=== PATIENT | male | born 1955 | race Caucasian/White ===

== ENCOUNTER 2017-04-17 06:09 | Inpatient (IN) | payer MEDICARE, MEDICAID ==
[2017-04-17] VITALS (17 sets, daily range): BP systolic 104–149; BP diastolic 57–92
[~2017-04-17] VITALS: Ht 193 cm; Wt 137.0 kg
[~2017-04-17 06:09] MED LIST: FERR-86 PO; FURO-150 PO; LACT10SO PO; MILK200C4 PO; POTASSIUM GLUCONATE PO; VITAMIN C PO; VITAMIN D PO
[2017-04-17] MEDS ORDERED: ondansetron/PF 4mg/2ml inj IV ONE ×2 (06:25→08:05)
[2017-04-17] MEDS ORDERED: aspirin 81mg tab.chew PO ONE (06:25)
[2017-04-17] MEDS ORDERED: furosemide 10 MG/1 ML 10ml inj IV ONE (06:25)
[2017-04-17] MEDS ORDERED: fentaNYL/PF 50MCG/1 ML 2ML syringe IV ONE ×3 (06:30→10:40)
[2017-04-17 07:24] LABS: BASOPHILS % (AUTO) 0.6 % (0-1); EOSINOPHILS # (AUTO) 0.1 X10'3 (0-0.9); EOSINOPHILS % (AUTO) 3.2 % (0-6); HEMATOCRIT 42.5 % (42.0-52.0); HEMOGLOBIN 14.5 g/dl (14.0-17.9); LYMPHOCYTES # (AUTO) 0.9 X10'3 (1.1-4.8); LYMPHOCYTES % (AUTO) 21.2 % (21-51); MEAN CORPUSCULAR HGB CONC 34.2 % (33.0-36.5); MEAN CORPUSCULAR VOLUME 93.6 FL (78-98); MEAN PLATELET VOLUME 7.9 FL (7.4-10.4); MONOCYTES # (AUTO) 0.2 X10'3 (0-0.9); MONOCYTES % (AUTO) 4.3 % (2-12); NEUTROPHILS # (AUTO) 3.1 X10'3 (1.8-7.7); NEUTROPHILS % (AUTO) 70.7 % (42-75); PLATELET COUNT 104 X10'3 (140-440); RED BLOOD COUNT 4.54 X10'6 (4.70-6.10); RED CELL DISTRIBUTION WIDTH 16.5 % (11.5-14.5); WHITE BLOOD COUNT 4.4 X10'3 (4.5-11.0)
[2017-04-17 07:32] LABS: INR 1.2 INR; PROTHROMBIN TIME 12.4 SECONDS (9.0-12.0)
[2017-04-17] MEDS ORDERED: METO5TAB7 PO (07:32)
[2017-04-17] MEDS ORDERED: LIDO35.4 (07:32)
[2017-04-17] MEDS ORDERED: SPIR25TA3 PO (07:32)
[2017-04-17] MEDS ORDERED: POTA20TA10 PO (07:32)
[2017-04-17 07:38] LABS: ALANINE AMINOTRANSFERASE 34 U/L (12-78); ALBUMIN 3.7 G/DL (3.4-5.0); ALBUMIN/GLOBULIN RATIO 0.9 (1.1-1.5); ALKALINE PHOSPHATASE 89 IU/L (46-116); ANION GAP 9 (8-16); ASPARTATE AMINO TRANSFERASE 44 U/L (10-37); BLOOD UREA NITROGEN 11 MG/DL (7-18); BUN/CREATININE RATIO 11.1 (5.4-32.0); CALCIUM 9.5 MG/DL (8.5-10.1); CHLORIDE 103 MMOL/L (99-107); CREATININE 0.99 MG/DL (0.60-1.10); GLUCOSE 120 MG/DL (70-104); POTASSIUM 3.6 MMOL/L (3.5-5.1); SODIUM 141 MMOL/L (135-145); TOTAL CARBON DIOXIDE 28.6 MMOL/L (24-32); eGFR 76 ML/MIN
[2017-04-17 07:47] LABS: LIPASE 130 U/L (73-393); MAGNESIUM 1.6 MG/DL (1.5-2.4)
[2017-04-17] MEDS ORDERED: piperacillin/tazo 3.375gm/50ml 50 ML IV ONE (08:25)
[2017-04-17 09:13] LABS: CLARITY,URINE Cloudy (Clear); COLOR,URINE Dark Yellow (Yellow); GLUCOSE, URINE Negative (Neg); KETONES,URINE Negative (Neg); LEUKOCYTE ESTERASE ,URINE Trace (Neg); NITRITES, URINE Negative (Neg); OCCULT BLOOD,URINE Negative (Neg); PROTEIN,URINE Negative (Neg)
[2017-04-17 09:15] LABS: UA COLLECTION TYPE FOLEY CATH
[2017-04-17 09:19] LABS: SQUAMOUS EPITHELIAL CELL,UR MODERATE /LPF (FEW)
[2017-04-17 09:20] LABS: BACTERIA,URINE 1+ /HPF (Neg); MUCUS STRANDS MODERATE /LPF (Neg); RBC,URINE 0-2 /HPF (0-2)
[2017-04-17 09:22] LABS: AMORPHOUS URATES 1+
[2017-04-17 09:32] LABS: URINE AMPHETAMINE SCREEN POSITIVE (Neg); URINE BARBITUATE SCREEN NEGATIVE (Neg); URINE BENZODIAZEPINES SCREEN NEGATIVE (Neg); URINE CANNABINOID SCREEN NEGATIVE (Neg); URINE COCAINE SCREEN NEGATIVE (Neg); URINE METHADONE SCREEN NEGATIVE (Neg); URINE OPIATE SCREEN NEGATIVE (Neg); URINE PHENCYCLIDINE SCREEN NEGATIVE (Neg)
[2017-04-17] MEDS ORDERED: potassium Cl 40MEQ/NS 500ml 500 ML IV PRN ×2 (11:35)
[2017-04-17] MEDS ORDERED: ondansetron/PF 4mg/2ml inj IV PRN ×2 (11:35→15:35)
[2017-04-17] MEDS ORDERED: potassium Cl 20 mEq SR tablet PO PRN ×2 (11:35)
[2017-04-17] MEDS ORDERED: acetaminophen 325mg tablet PO PRN ×2 (11:35)
[2017-04-17] MEDS: normal saline 1000ml 1,000 ML IV SCH (11:35)
[2017-04-17] MEDS ORDERED: BUPIVAcaine/PF 2.5 mg/ml (0.25%) 30ml vial ONE (14:10)
[2017-04-17] MEDS ORDERED: epiNEPHrine 1 mg/ml inj ONE (14:10)
[2017-04-17] MEDS: piperacillin/tazo 3.375gm/50ml 50 ML IV SCH ×2 (14:13→20:20)
[2017-04-17] MEDS: HYDROmorphone inj. 0.5 MG/0.5 ML DISP.SYRIN IV PRN ×2 (14:27→20:20)
[2017-04-17] MEDS ORDERED: fentaNYL/PF 50MCG/1 ML 2ML syringe ONE (14:47)
[2017-04-17] MEDS ORDERED: midazolam 2 mg/2 ml injection ONE (14:47)
[2017-04-17] MEDS ORDERED: rocuronium 10mg/ml inj IV ONE (14:48)
[2017-04-17] MEDS ORDERED: sevoflurane 250ml liquid IH ONE (14:48)
[2017-04-17] MEDS ORDERED: propofol inj 20 ML IV ONE (14:48)
[2017-04-17] MEDS ORDERED: ringers solution, lacted 1,000 ML IV SCH (15:33)
[2017-04-17] MEDS ORDERED: HYDROmorphone 1 mg/ml syringe IV PRN ×2 (15:35)
[2017-04-17] MEDS ORDERED: meperidine/PF 25mg/ml syringe IV ONE (15:35)
[2017-04-17] MEDS ORDERED: proCHLORperazine 10 MG/2 ml inj IV PRN (15:35)
[2017-04-17] MEDS ORDERED: meperidine/PF 25mg/ml syringe IV PRN ×2 (15:35)
[2017-04-17] MEDS ORDERED: labetalol 5mg/ml 20ml inj. IV PRN (15:35)
[2017-04-17] MEDS ORDERED: glycopyrrolate 0.2mg/ml inj ONE (15:41)
[2017-04-17] MEDS ORDERED: neostigmine methylsulfate 1 MG/ML 10ml vial ONE (15:41)
[2017-04-17] MEDS: pantoprazole 40MG/NS 100ML BAG 100 ML IV SCH ×2 (16:46→20:20)
[2017-04-17] MEDS: docusate sod 100mg capsule PO SCH (20:00)
[2017-04-18] VITALS (14 sets, daily range): BP systolic 100–157; BP diastolic 53–83
[2017-04-18] MEDS: piperacillin/tazo 3.375gm/50ml 50 ML IV SCH ×4 (01:28→19:22)
[2017-04-18] MEDS: pantoprazole 40MG/NS 100ML BAG 100 ML IV SCH ×5 (01:28→19:46)
[2017-04-18 05:43] LABS: BASOPHILS % (AUTO) 0.1 % (0-1); EOSINOPHILS # (AUTO) 0.1 X10'3 (0-0.9); EOSINOPHILS % (AUTO) 1.6 % (0-6); HEMATOCRIT 40.9 % (42.0-52.0); HEMOGLOBIN 13.9 g/dl (14.0-17.9); LYMPHOCYTES # (AUTO) 0.9 X10'3 (1.1-4.8); LYMPHOCYTES % (AUTO) 11.6 % (21-51); MEAN CORPUSCULAR HEMOGLOBIN 32.1 PG (27.0-31.0); MEAN CORPUSCULAR HGB CONC 34.1 % (33.0-36.5); MEAN CORPUSCULAR VOLUME 94.3 FL (78-98); MEAN PLATELET VOLUME 8.7 FL (7.4-10.4); MONOCYTES # (AUTO) 0.7 X10'3 (0-0.9); NEUTROPHILS % (AUTO) 77.7 % (42-75); PLATELET COUNT 67 X10'3 (140-440); RED BLOOD COUNT 4.34 X10'6 (4.70-6.10); RED CELL DISTRIBUTION WIDTH 16.1 % (11.5-14.5); WHITE BLOOD COUNT 7.7 X10'3 (4.5-11.0)
[2017-04-18 06:05] LABS: ALANINE AMINOTRANSFERASE 24 U/L (12-78); ALBUMIN 2.6 G/DL (3.4-5.0); ALBUMIN/GLOBULIN RATIO 0.7 (1.1-1.5); ALKALINE PHOSPHATASE 46 IU/L (46-116); ANION GAP 5 (8-16); ASPARTATE AMINO TRANSFERASE 41 U/L (10-37); BILIRUBIN,TOTAL 3.4 MG/DL (0.1-1.0); BLOOD UREA NITROGEN 17 MG/DL (7-18); BUN/CREATININE RATIO 14.8 (5.4-32.0); CALCIUM 8.5 MG/DL (8.5-10.1); CHLORIDE 106 MMOL/L (99-107); CREATININE 1.15 MG/DL (0.60-1.10); GLUCOSE 99 MG/DL (70-104); MAGNESIUM 1.4 MG/DL (1.5-2.4); PHOSPHORUS 4.5 MG/DL (2.3-4.5); POTASSIUM 4.1 MMOL/L (3.5-5.1); SODIUM 142 MMOL/L (135-145); TOTAL CARBON DIOXIDE 30.7 MMOL/L (24-32); TOTAL PROTEIN 6.3 G/DL (6.4-8.2); eGFR 64 ML/MIN
[2017-04-18] MEDS: normal saline 1000ml 1,000 ML IV SCH (07:00)
[2017-04-18] MEDS: fluconazole-Diflucan 200mg/NS 100 ML IV SCH (08:00)
[2017-04-18] MEDS: docusate sod 100mg capsule PO SCH ×2 (08:00→19:48)
[2017-04-18] MEDS: HYDROmorphone inj. 0.5 MG/0.5 ML DISP.SYRIN IV PRN ×2 (09:05→13:18)
[2017-04-18] MEDS ORDERED: Dextrose 10%-water IV solution 1,000 ML IV PRN (15:48)
[2017-04-18] MEDS ORDERED: magnesium Cl slow-release 64mg tablet PO PRN (15:50)
[2017-04-18] MEDS: K, MAG and/or Phos replacement - Verify level? MC SCH (15:50)
[2017-04-18] MEDS ORDERED: sodium phosphate inj. 15 MMOL in dextrose 5%-water 150 ML IV PRN (15:50)
[2017-04-18] MEDS ORDERED: potassium Cl 40MEQ/250ML bag 250 ML IV PRN (15:50)
[2017-04-18] MEDS ORDERED: sodium phosphate inj. 30 MMOL in dextrose 5%-water 250 ML IV PRN (15:50)
[2017-04-18] MEDS ORDERED: magnesium 4gm in 100ml NS 100 ML IV PRN (15:50)
[2017-04-18] MEDS ORDERED: Neutra Phos packet PO PRN (15:50)
[2017-04-18] MEDS ORDERED: magnesium 2GM in 50ml NS 50 ML IV PRN (15:50)
[2017-04-18] MEDS ORDERED: potassium Cl 20 mEq SR tablet PO PRN ×2 (15:50)
[2017-04-18 16:27] LABS: ALANINE AMINOTRANSFERASE 25 U/L (12-78); ALBUMIN 2.4 G/DL (3.4-5.0); ALBUMIN/GLOBULIN RATIO 0.7 (1.1-1.5); ALKALINE PHOSPHATASE 45 IU/L (46-116); ANION GAP 5 (8-16); ASPARTATE AMINO TRANSFERASE 38 U/L (10-37); BILIRUBIN,TOTAL 2.7 MG/DL (0.1-1.0); BLOOD UREA NITROGEN 18 MG/DL (7-18); BUN/CREATININE RATIO 19.1 (5.4-32.0); CHLORIDE 109 MMOL/L (99-107); CREATININE 0.94 MG/DL (0.60-1.10); GLUCOSE 84 MG/DL (70-104); MAGNESIUM 1.6 MG/DL (1.5-2.4); PHOSPHORUS 2.6 MG/DL (2.3-4.5); POTASSIUM 3.4 MMOL/L (3.5-5.1); SODIUM 145 MMOL/L (135-145); TOTAL CARBON DIOXIDE 30.8 MMOL/L (24-32); TOTAL PROTEIN 5.9 G/DL (6.4-8.2); TRIGLYCERIDES 37 MG/DL (20-135); eGFR 81 ML/MIN
[2017-04-18] MEDS: fat emulsion IV 100 ML, MVI, adult No.4 with vit. K 10 ML, Trace element-5 inj. 1 ML in... IV SCH ×4 (19:23)
[2017-04-19] MEDS: pantoprazole 40MG/NS 100ML BAG 100 ML IV SCH ×5 (01:21→21:00)
[2017-04-19] MEDS: piperacillin/tazo 3.375gm/50ml 50 ML IV SCH ×4 (01:23→20:11)
[2017-04-19 03:00] VITALS: BP 122/61
[2017-04-19 06:43] LABS: BASOPHILS % (AUTO) 0.1 % (0-1); EOSINOPHILS # (AUTO) 0.2 X10'3 (0-0.9); EOSINOPHILS % (AUTO) 2.4 % (0-6); HEMATOCRIT 35.1 % (42.0-52.0); HEMOGLOBIN 11.8 g/dl (14.0-17.9); LYMPHOCYTES # (AUTO) 0.8 X10'3 (1.1-4.8); LYMPHOCYTES % (AUTO) 10.3 % (21-51); MEAN CORPUSCULAR HEMOGLOBIN 31.8 PG (27.0-31.0); MEAN CORPUSCULAR HGB CONC 33.6 % (33.0-36.5); MEAN CORPUSCULAR VOLUME 94.7 FL (78-98); MEAN PLATELET VOLUME 8.9 FL (7.4-10.4); MONOCYTES # (AUTO) 0.9 X10'3 (0-0.9); MONOCYTES % (AUTO) 10.8 % (2-12); NEUTROPHILS # (AUTO) 6.1 X10'3 (1.8-7.7); NEUTROPHILS % (AUTO) 76.4 % (42-75); PLATELET COUNT 72 X10'3 (140-440); RED CELL DISTRIBUTION WIDTH 16.4 % (11.5-14.5)
[2017-04-19 07:00] VITALS: BP 137/63
[2017-04-19] MEDS: HYDROmorphone inj. 0.5 MG/0.5 ML DISP.SYRIN IV PRN ×3 (07:02→17:02)
[2017-04-19 07:39] LABS: ALANINE AMINOTRANSFERASE 23 U/L (12-78); ALBUMIN 2.1 G/DL (3.4-5.0); ALBUMIN/GLOBULIN RATIO 0.6 (1.1-1.5); ALKALINE PHOSPHATASE 42 IU/L (46-116); ANION GAP 5 (8-16); ASPARTATE AMINO TRANSFERASE 30 U/L (10-37); BILIRUBIN,TOTAL 2.1 MG/DL (0.1-1.0); BLOOD UREA NITROGEN 18 MG/DL (7-18); BUN/CREATININE RATIO 18.6 (5.4-32.0); CALCIUM 7.8 MG/DL (8.5-10.1); CHLORIDE 111 MMOL/L (99-107); CREATININE 0.97 MG/DL (0.60-1.10); GLUCOSE 108 MG/DL (70-104); MAGNESIUM 1.8 MG/DL (1.5-2.4); PHOSPHORUS 1.8 MG/DL (2.3-4.5); PREALBUMIN 6.8 MG/DL (19-36); SODIUM 146 MMOL/L (135-145); TOTAL CARBON DIOXIDE 29.8 MMOL/L (24-32); TOTAL PROTEIN 5.4 G/DL (6.4-8.2); TRIGLYCERIDES 40 MG/DL (20-135); eGFR 78 ML/MIN
[2017-04-19] MEDS: docusate sod 100mg capsule PO SCH ×2 (08:00→20:00)
[2017-04-19] MEDS: K, MAG and/or Phos replacement - Verify level? MC SCH (08:00)
[2017-04-19] MEDS: fluconazole-Diflucan 200mg/NS 100 ML IV SCH (08:42)
[2017-04-19] MEDS: potassium Cl 40MEQ/250ML bag 250 ML IV PRN (09:28)
[2017-04-19] MEDS ORDERED: potassium phosphate inj 30 MMOL in normal saline 500ml IV soln 490 ML IV ONE (12:10)
[2017-04-19 15:00] VITALS: BP 129/65
[2017-04-19] MEDS: lactobacillus rhamnosus 10,000 MMU CELLS/CAPSULE PO SCH (15:59)
[2017-04-19 19:00] VITALS: BP 141/65
[2017-04-19 23:00] VITALS: BP 134/80
[2017-04-20] MEDS: piperacillin/tazo 3.375gm/50ml 50 ML IV SCH ×4 (00:53→20:28)
[2017-04-20] MEDS: HYDROmorphone inj. 0.5 MG/0.5 ML DISP.SYRIN IV PRN ×4 (00:55→16:27)
[2017-04-20] MEDS: pantoprazole 40MG/NS 100ML BAG 100 ML IV SCH ×5 (00:55→21:31)
[2017-04-20 03:00] VITALS: BP 127/62
[2017-04-20 03:07] LABS: BASOPHILS % (AUTO) 0.3 % (0-1); EOSINOPHILS # (AUTO) 0.3 X10'3 (0-0.9); EOSINOPHILS % (AUTO) 4.6 % (0-6); HEMATOCRIT 36.1 % (42.0-52.0); HEMOGLOBIN 12.2 g/dl (14.0-17.9); LYMPHOCYTES # (AUTO) 0.9 X10'3 (1.1-4.8); MEAN CORPUSCULAR HGB CONC 33.7 % (33.0-36.5); MEAN PLATELET VOLUME 8.1 FL (7.4-10.4); MONOCYTES # (AUTO) 0.8 X10'3 (0-0.9); MONOCYTES % (AUTO) 11.1 % (2-12); NEUTROPHILS # (AUTO) 5.3 X10'3 (1.8-7.7); PLATELET COUNT 75 X10'3 (140-440); RED CELL DISTRIBUTION WIDTH 16.5 % (11.5-14.5); WHITE BLOOD COUNT 7.4 X10'3 (4.5-11.0)
[2017-04-20 03:27] LABS: ALANINE AMINOTRANSFERASE 19 U/L (12-78); ALBUMIN 2.1 G/DL (3.4-5.0); ALBUMIN/GLOBULIN RATIO 0.6 (1.1-1.5); ALKALINE PHOSPHATASE 48 IU/L (46-116); ANION GAP 3 (8-16); ASPARTATE AMINO TRANSFERASE 28 U/L (10-37); BILIRUBIN,TOTAL 2.1 MG/DL (0.1-1.0); BLOOD UREA NITROGEN 15 MG/DL (7-18); BUN/CREATININE RATIO 14.7 (5.4-32.0); CALCIUM 8.2 MG/DL (8.5-10.1); CHLORIDE 113 MMOL/L (99-107); CREATININE 1.02 MG/DL (0.60-1.10); GLUCOSE 116 MG/DL (70-104); MAGNESIUM 1.9 MG/DL (1.5-2.4); PHOSPHORUS 2.4 MG/DL (2.3-4.5); POTASSIUM 3.6 MMOL/L (3.5-5.1); SODIUM 147 MMOL/L (135-145); TOTAL CARBON DIOXIDE 31.4 MMOL/L (24-32); TOTAL PROTEIN 5.7 G/DL (6.4-8.2); eGFR 74 ML/MIN
[2017-04-20 06:00] VITALS: BP 123/71
[2017-04-20] MEDS: lactobacillus rhamnosus 10,000 MMU CELLS/CAPSULE PO SCH ×2 (07:30→17:30)
[2017-04-20] MEDS: fluconazole-Diflucan 200mg/NS 100 ML IV SCH (07:50)
[2017-04-20] MEDS: docusate sod 100mg capsule PO SCH ×2 (07:51→20:00)
[2017-04-20] MEDS: K, MAG and/or Phos replacement - Verify level? MC SCH (08:00)
[2017-04-20 11:00] VITALS: BP 126/69
[2017-04-20 15:00] VITALS: BP 138/62
[2017-04-20] MEDS: normal saline 1000ml 1,000 ML IV SCH (16:38)
[2017-04-21] MEDS: pantoprazole 40MG/NS 100ML BAG 100 ML IV SCH ×3 (02:01→11:00)
[2017-04-21] MEDS: piperacillin/tazo 3.375gm/50ml 50 ML IV SCH ×2 (02:02→07:41)
[2017-04-21] MEDS: normal saline 1000ml 1,000 ML IV SCH ×2 (02:03→16:59)
[2017-04-21 02:53] LABS: BASOPHILS % (AUTO) 0.3 % (0-1); EOSINOPHILS # (AUTO) 0.4 X10'3 (0-0.9); EOSINOPHILS % (AUTO) 6.6 % (0-6); HEMATOCRIT 34.8 % (42.0-52.0); HEMOGLOBIN 11.7 g/dl (14.0-17.9); LYMPHOCYTES # (AUTO) 0.8 X10'3 (1.1-4.8); LYMPHOCYTES % (AUTO) 14.5 % (21-51); MEAN CORPUSCULAR HEMOGLOBIN 31.7 PG (27.0-31.0); MEAN CORPUSCULAR HGB CONC 33.5 % (33.0-36.5); MEAN CORPUSCULAR VOLUME 94.6 FL (78-98); MEAN PLATELET VOLUME 8.1 FL (7.4-10.4); MONOCYTES # (AUTO) 0.9 X10'3 (0-0.9); MONOCYTES % (AUTO) 15.6 % (2-12); NEUTROPHILS # (AUTO) 3.6 X10'3 (1.8-7.7); PLATELET COUNT 77 X10'3 (140-440); RED BLOOD COUNT 3.68 X10'6 (4.70-6.10); RED CELL DISTRIBUTION WIDTH 16.3 % (11.5-14.5); WHITE BLOOD COUNT 5.8 X10'3 (4.5-11.0)
[2017-04-21 03:11] LABS: ALANINE AMINOTRANSFERASE 15 U/L (12-78); ALBUMIN 1.9 G/DL (3.4-5.0); ALBUMIN/GLOBULIN RATIO 0.5 (1.1-1.5); ALKALINE PHOSPHATASE 45 IU/L (46-116); ANION GAP 4 (8-16); ASPARTATE AMINO TRANSFERASE 30 U/L (10-37); BILIRUBIN,TOTAL 1.8 MG/DL (0.1-1.0); BLOOD UREA NITROGEN 14 MG/DL (7-18); BUN/CREATININE RATIO 15.2 (5.4-32.0); CALCIUM 8.2 MG/DL (8.5-10.1); CHLORIDE 112 MMOL/L (99-107); CREATININE 0.92 MG/DL (0.60-1.10); GLUCOSE 115 MG/DL (70-104); PHOSPHORUS 2.8 MG/DL (2.3-4.5); POTASSIUM 3.4 MMOL/L (3.5-5.1); SODIUM 146 MMOL/L (135-145); TOTAL CARBON DIOXIDE 30.5 MMOL/L (24-32); TOTAL PROTEIN 5.6 G/DL (6.4-8.2); eGFR 83 ML/MIN
[2017-04-21] MEDS ORDERED: potassium Cl 40MEQ/250ML bag 250 ML IV ONE (03:36)
[2017-04-21] MEDS: potassium Cl 40MEQ/250ML bag 250 ML IV PRN (03:48)
[2017-04-21 06:00] VITALS: BP 163/64
[2017-04-21] MEDS: lactobacillus rhamnosus 10,000 MMU CELLS/CAPSULE PO SCH ×2 (07:30→17:22)
[2017-04-21] MEDS: docusate sod 100mg capsule PO SCH ×2 (07:35→20:04)
[2017-04-21] MEDS: K, MAG and/or Phos replacement - Verify level? MC SCH (08:00)
[2017-04-21] MEDS: fluconazole-Diflucan 200mg/NS 100 ML IV SCH (08:23)
[2017-04-21 11:00] VITALS: BP 147/51
[2017-04-21] MEDS: HYDROmorphone inj. 0.5 MG/0.5 ML DISP.SYRIN IV PRN (11:58)
[2017-04-21] MEDS: fat emulsion IV 100 ML, MVI, adult No.4 with vit. K 10 ML, Trace element-5 inj. 1 ML in... IV SCH ×8 (12:05→13:05)
[2017-04-21 15:00] VITALS: BP 150/62
[2017-04-21] MEDS: LACTOSE-FREE FOOD 237ML (BOOST) PO SCH (18:07)
[2017-04-21 19:00] VITALS: BP 151/62
[2017-04-21] MEDS: magnesium hydroxide 30ml (MOM) UD suspension PO SCH (20:04)
[2017-04-21 23:00] VITALS: BP 129/53
[2017-04-22 03:00] VITALS: BP 142/58
[2017-04-22 06:00] VITALS: BP 134/71
[2017-04-22 07:11] LABS: BASOPHILS % (AUTO) 0.4 % (0-1); EOSINOPHILS # (AUTO) 0.4 X10'3 (0-0.9); EOSINOPHILS % (AUTO) 6.4 % (0-6); HEMATOCRIT 34.2 % (42.0-52.0); HEMOGLOBIN 11.5 g/dl (14.0-17.9); MEAN CORPUSCULAR HEMOGLOBIN 31.6 PG (27.0-31.0); MEAN CORPUSCULAR HGB CONC 33.6 % (33.0-36.5); MEAN CORPUSCULAR VOLUME 94.3 FL (78-98); MEAN PLATELET VOLUME 7.7 FL (7.4-10.4); MONOCYTES # (AUTO) 0.8 X10'3 (0-0.9); MONOCYTES % (AUTO) 12.7 % (2-12); NEUTROPHILS # (AUTO) 3.8 X10'3 (1.8-7.7); NEUTROPHILS % (AUTO) 63.5 % (42-75); PLATELET COUNT 75 X10'3 (140-440); RED BLOOD COUNT 3.63 X10'6 (4.70-6.10); RED CELL DISTRIBUTION WIDTH 16.7 % (11.5-14.5)
[2017-04-22 07:25] LABS: ALANINE AMINOTRANSFERASE 21 U/L (12-78); ALBUMIN/GLOBULIN RATIO 0.6 (1.1-1.5); ALKALINE PHOSPHATASE 52 IU/L (46-116); ANION GAP 5 (8-16); ASPARTATE AMINO TRANSFERASE 39 U/L (10-37); BILIRUBIN,TOTAL 1.6 MG/DL (0.1-1.0); BLOOD UREA NITROGEN 12 MG/DL (7-18); BUN/CREATININE RATIO 16.2 (5.4-32.0); CHLORIDE 115 MMOL/L (99-107); CREATININE 0.74 MG/DL (0.60-1.10); GLUCOSE 93 MG/DL (70-104); MAGNESIUM 1.9 MG/DL (1.5-2.4); POTASSIUM 3.6 MMOL/L (3.5-5.1); SODIUM 147 MMOL/L (135-145); TOTAL CARBON DIOXIDE 27.1 MMOL/L (24-32); TOTAL PROTEIN 5.6 G/DL (6.4-8.2); eGFR > 90 ML/MIN
[2017-04-22] MEDS: normal saline 1000ml 1,000 ML IV SCH (07:30)
[2017-04-22] MEDS: methylnaltrexone br 12mg/0.6ml inj***SubQ only SQ SCH (07:33)
[2017-04-22] MEDS: docusate sod 100mg capsule PO SCH ×2 (07:34→19:18)
[2017-04-22] MEDS: lactobacillus rhamnosus 10,000 MMU CELLS/CAPSULE PO SCH ×2 (07:34→17:30)
[2017-04-22] MEDS: pantoprazole 40mg Tablet.DR PO SCH (07:34)
[2017-04-22] MEDS: K, MAG and/or Phos replacement - Verify level? MC SCH (07:37)
[2017-04-22] MEDS: LACTOSE-FREE FOOD 237ML (BOOST) PO SCH ×4 (08:00→18:20)
[2017-04-22] MEDS: magnesium hydroxide 30ml (MOM) UD suspension PO SCH ×2 (08:00→19:18)
[2017-04-22] MEDS: HYDROmorphone inj. 0.5 MG/0.5 ML DISP.SYRIN IV PRN (13:12)
[2017-04-22 19:00] VITALS: BP 161/68
[2017-04-22 23:00] VITALS: BP 132/60
[2017-04-23 03:00] VITALS: BP 121/59
[2017-04-23 04:56] LABS: BASOPHILS % (AUTO) 0.4 % (0-1); EOSINOPHILS # (AUTO) 0.5 X10'3 (0-0.9); EOSINOPHILS % (AUTO) 6.2 % (0-6); HEMOGLOBIN 12.1 g/dl (14.0-17.9); LYMPHOCYTES # (AUTO) 1.4 X10'3 (1.1-4.8); LYMPHOCYTES % (AUTO) 18.1 % (21-51); MEAN CORPUSCULAR HEMOGLOBIN 31.7 PG (27.0-31.0); MEAN CORPUSCULAR HGB CONC 33.6 % (33.0-36.5); MEAN CORPUSCULAR VOLUME 94.4 FL (78-98); MEAN PLATELET VOLUME 8.3 FL (7.4-10.4); MONOCYTES % (AUTO) 12.9 % (2-12); NEUTROPHILS # (AUTO) 4.8 X10'3 (1.8-7.7); NEUTROPHILS % (AUTO) 62.4 % (42-75); PLATELET COUNT 94 X10'3 (140-440); RED BLOOD COUNT 3.81 X10'6 (4.70-6.10); WHITE BLOOD COUNT 7.7 X10'3 (4.5-11.0)
[2017-04-23 05:28] LABS: ALANINE AMINOTRANSFERASE 19 U/L (12-78); ALBUMIN 2.2 G/DL (3.4-5.0); ALBUMIN/GLOBULIN RATIO 0.5 (1.1-1.5); ALKALINE PHOSPHATASE 64 IU/L (46-116); ANION GAP 7 (8-16); ASPARTATE AMINO TRANSFERASE 46 U/L (10-37); BILIRUBIN,TOTAL 1.7 MG/DL (0.1-1.0); BLOOD UREA NITROGEN 13 MG/DL (7-18); BUN/CREATININE RATIO 15.9 (5.4-32.0); CALCIUM 8.8 MG/DL (8.5-10.1); CHLORIDE 107 MMOL/L (99-107); CREATININE 0.82 MG/DL (0.60-1.10); GLUCOSE 95 MG/DL (70-104); MAGNESIUM 2.1 MG/DL (1.5-2.4); POTASSIUM 3.7 MMOL/L (3.5-5.1); PREALBUMIN 8.5 MG/DL (19-36); SODIUM 143 MMOL/L (135-145); TOTAL CARBON DIOXIDE 29.5 MMOL/L (24-32); TOTAL PROTEIN 6.3 G/DL (6.4-8.2); TRIGLYCERIDES 57 MG/DL (20-135); eGFR > 90 ML/MIN
[2017-04-23] MEDS: K, MAG and/or Phos replacement - Verify level? MC SCH (06:45)
[2017-04-23 07:02] VITALS: BP 130/61
[2017-04-23] MEDS: pantoprazole 40mg Tablet.DR PO SCH (07:05)
[2017-04-23] MEDS: lactobacillus rhamnosus 10,000 MMU CELLS/CAPSULE PO SCH ×2 (07:05→16:31)
[2017-04-23] MEDS: docusate sod 100mg capsule PO SCH ×2 (07:05→19:08)
[2017-04-23] MEDS: magnesium hydroxide 30ml (MOM) UD suspension PO SCH ×2 (07:05→19:08)
[2017-04-23 11:30] VITALS: BP 142/57
[2017-04-23] MEDS: LACTOSE-FREE FOOD 237ML (BOOST) PO SCH ×2 (13:05→18:00)
[2017-04-23 16:44] VITALS: BP 136/70
[2017-04-23 19:00] VITALS: BP 145/67
[2017-04-23] MEDS: furosemide 40mg/4ml inj IV SCH (19:08)
[2017-04-23 23:00] VITALS: BP 131/63
[2017-04-24 03:00] VITALS: BP 130/59
[2017-04-24 07:00] VITALS: BP 123/62
[2017-04-24] MEDS: pantoprazole 40mg Tablet.DR PO SCH (07:27)
[2017-04-24] MEDS: furosemide 40mg/4ml inj IV SCH (07:27)
[2017-04-24] MEDS: lactobacillus rhamnosus 10,000 MMU CELLS/CAPSULE PO SCH (07:28)
[2017-04-24] MEDS: magnesium hydroxide 30ml (MOM) UD suspension PO SCH (07:28)
[2017-04-24] MEDS: docusate sod 100mg capsule PO SCH (07:28)
[2017-04-24] MEDS: LACTOSE-FREE FOOD 237ML (BOOST) PO SCH (07:34)
[2017-04-24] MEDS: methylnaltrexone br 12mg/0.6ml inj***SubQ only SQ SCH (07:38)
[2017-04-24] MEDS: K, MAG and/or Phos replacement - Verify level? MC SCH (07:38)
[2017-04-24] MEDS ORDERED: FURO40TA4 PO (10:16)
== END 2017-04-24 11:35 | disposition home or self-care (01) | DRG 853 ==
LOC: ER 06:09 → ED HOLD 11:41 → CICU 2S 12:30 → PCU 3S 04-18 12:40
PROVIDERS: ADMIT Internal Medicine Critical Care Medicine; ATTEND Family Medicine
PROC: 0DU907Z Supplement Duodenum with Autologous Tissue Substitute, Open Approach (ICD-10-PCS; principal; 2017-04-17 14:48)
PROC: 02HV33Z Insertion of Infusion Device into Superior Vena Cava, Percutaneous Approach (ICD-10-PCS; 2017-04-18)
PROC: 4A02X4A Measurement of Cardiac Electrical Activity, Guidance, External Approach (ICD-10-PCS; 2017-04-18)
DX: A41.9 Sepsis, unspecified organism (principal); K26.5 Chronic or unspecified duodenal ulcer with perforation; N17.0 Acute kidney failure with tubular necrosis; E43 Unspecified severe protein-calorie malnutrition; I50.23 Acute on chronic systolic (congestive) heart failure; D68.9 Coagulation defect, unspecified; E83.39 Other disorders of phosphorus metabolism; E87.0 Hyperosmolality and hypernatremia; R18.8 Other ascites; B19.20 Unspecified viral hepatitis C without hepatic coma; D64.9 Anemia, unspecified; E87.6 Hypokalemia; G89.29 Other chronic pain; I11.0 Hypertensive heart disease with heart failure; J44.9 Chronic obstructive pulmonary disease, unspecified; K42.9 Umbilical hernia without obstruction or gangrene; K74.60 Unspecified cirrhosis of liver; F15.10 Other stimulant abuse, uncomplicated; Z96.652 Presence of left artificial knee joint; Z90.49 Acquired absence of other specified parts of digestive tract; Z91.14 Patient's other noncompliance with medication regimen; Z88.6 Allergy status to analgesic agent; Z79.899 Other long term (current) drug therapy; Z87.891 Personal history of nicotine dependence
CPT/HCPCS: 36415; 36569; 71010; 74176; 76937; 80053; 80305; 81001; 82948; 83605; 83690; 83735; 83880; 84100; 84132; 84134; 84478; 84484; 85025; 85610; 86885; 86900; 86901; 87040; 87070; 87077; 87088; 93005; 96365; 96375; 96376; 97110; 97116; 97161; 97530; 99291; A4310; A4353; A6213; A6449; A7000; C1758; C9113; J0171; J1170; J1450; J1940; J2212; J2250; J2405; J2543; J2704; J2710; J3010; J3480; J3490; J7030; J7120

== ENCOUNTER 2018-02-25 08:43 | Day surgery (SDC) | payer MEDICARE, MEDICAID ==
[~2018-02-25] VITALS: Ht 193 cm; Wt 131.8 kg
[~2018-02-25 08:43] MED LIST changes: -FERR-86 PO; -FURO-150 PO; +FURO40TA4 PO; -LACT10SO PO; +LIDO35.4; +METO5TAB7 PO; -MILK200C4 PO; +POTA20TA10 PO; -POTASSIUM GLUCONATE PO; +SPIR25TA5 PO
[2018-02-25 08:56] VITALS: BP 153/78
[2018-02-25] MEDS ORDERED: FURO-149 PO (09:07)
[2018-02-25] MEDS ORDERED: FURO-150 PO (09:08)
[2018-02-25] MEDS ORDERED: CHOLECALCIFEROL (09:09)
[2018-02-25] MEDS ORDERED: LIDOcaine Viscous 15ml cup ONE (09:33)
[2018-02-25] MEDS ORDERED: MIDAZolam 5mg/5ml vial ONE (09:33)
[2018-02-25] MEDS ORDERED: fentaNYL/PF 50MCG/1 ML 2ML syringe ONE (09:33)
[2018-02-25 10:06] VITALS: BP 129/70
[2018-02-25 10:16] VITALS: BP 126/66
[2018-02-25 10:26] VITALS: BP 126/77
== END 2018-02-25 10:45 | disposition home or self-care (01) ==
LOC: GI LAB 08:43
PROVIDERS: ATTEND Internal Medicine Gastroenterology
DX: I85.00 Esophageal varices without bleeding (principal); K76.6 Portal hypertension; K31.89 Other diseases of stomach and duodenum
CPT/HCPCS: 43235; G0500; J2250; J3010; J7030; 99152; A4620

== ENCOUNTER 2019-03-18 10:13 | Day surgery (SDC) | payer MEDICARE, MEDICAID ==
[~2019-03-18] VITALS: Ht 193 cm; Wt 136.4 kg
[~2019-03-18 10:13] MED LIST changes: +CHOLECALCIFEROL; +FURO-149 PO; +FURO-150 PO; -FURO40TA4 PO; -LIDO35.4; -VITAMIN C PO; -VITAMIN D PO
[2019-03-18 10:24] VITALS: BP 161/73
[2019-03-18] MEDS ORDERED: MIDAZolam 5mg/5ml vial ONE (10:37)
[2019-03-18] MEDS ORDERED: fentaNYL/PF 50MCG/1 ML 2ML syringe ONE (10:37)
[2019-03-18] MEDS ORDERED: LIDOcaine Viscous 15ml cup ONE (10:38)
[2019-03-18 10:55] VITALS: BP 151/88
[2019-03-18 11:05] VITALS: BP 130/74
[2019-03-18 11:15] VITALS: BP 141/86
[2019-03-18 11:25] VITALS: BP 125/71
== END 2019-03-18 11:35 | disposition home or self-care (01) ==
LOC: GI LAB 10:13
PROVIDERS: ATTEND Internal Medicine Gastroenterology
DX: I85.00 Esophageal varices without bleeding (principal); K76.6 Portal hypertension; K31.89 Other diseases of stomach and duodenum
CPT/HCPCS: 43235; G0500; J2250; J3010; J7040; 99152; A4620

== ENCOUNTER 2020-03-26 09:27 | Day surgery (SDC) | payer MEDICARE, MEDICAID ==
[~2020-03-26] VITALS: Ht 193 cm; Wt 141.8 kg
[~2020-03-26 09:27] MED LIST changes: +CHOL500050 PO; -CHOLECALCIFEROL; -FURO-150 PO; +PANT40TA54 PO
[2020-03-26 09:39] VITALS: BP 154/109
[2020-03-26] MEDS ORDERED: MIDAZolam 5mg/5ml vial ONE (09:43)
[2020-03-26] MEDS ORDERED: fentaNYL/PF 50MCG/1 ML 2ML syringe ONE (09:43)
[2020-03-26] MEDS ORDERED: LIDOcaine Viscous 15ml cup ONE (09:44)
[2020-03-26] MEDS ORDERED: FURO-150 PO (09:50)
[2020-03-26] MEDS ORDERED: ASPI-611 PO (09:51)
[2020-03-26] MEDS ORDERED: ZAR2.5T PO (09:52)
[2020-03-26] MEDS ORDERED: MULT-1180 PO (09:53)
[2020-03-26 10:38] VITALS: BP 142/69
[2020-03-26 10:48] VITALS: BP 140/65
[2020-03-26 10:58] VITALS: BP 143/69
[2020-03-26 11:08] VITALS: BP 139/91
== END 2020-03-26 11:20 | disposition home or self-care (01) ==
LOC: GI LAB 09:27
PROVIDERS: ATTEND Internal Medicine Gastroenterology
DX: I85.00 Esophageal varices without bleeding (principal); K22.10 Ulcer of esophagus without bleeding; K31.89 Other diseases of stomach and duodenum; K29.70 Gastritis, unspecified, without bleeding; Z87.891 Personal history of nicotine dependence; Z86.19 Personal history of other infectious and parasitic diseases; Z79.82 Long term (current) use of aspirin; Z79.899 Other long term (current) drug therapy; Z88.5 Allergy status to narcotic agent
CPT/HCPCS: 43239; G0500; J2250; J3010; J7040; 99152; A4620

== ENCOUNTER 2020-05-18 09:01 | Day surgery (SDC) | payer MEDICARE, MEDICAID ==
[~2020-05-18] VITALS: Ht 193 cm; Wt 141.8 kg
[~2020-05-18 09:01] MED LIST changes: +ASPI-611 PO; -CHOL500050 PO; -FURO-149 PO; +FURO-150 PO; -METO5TAB7 PO; +MULT-1180 PO; -PANT40TA54 PO; +ZAR2.5T PO
[2020-05-18 09:17] VITALS: BP 151/81
[2020-05-18] MEDS ORDERED: VITAMIN D PO (09:29)
[2020-05-18] MEDS ORDERED: EZET10TA6 PO (09:31)
[2020-05-18] MEDS ORDERED: PANT-47 PO (09:32)
[2020-05-18] MEDS ORDERED: fentaNYL/PF 50MCG/1 ML 2ML syringe ONE (09:43)
[2020-05-18] MEDS ORDERED: MIDAZolam 5mg/5ml vial ONE (09:43)
[2020-05-18] MEDS ORDERED: LIDOcaine Viscous 15ml cup ONE (09:43)
[2020-05-18 11:02] VITALS: BP 139/68
[2020-05-18 11:12] VITALS: BP 135/74
[2020-05-18 11:22] VITALS: BP 130/71
== END 2020-05-18 11:33 | disposition home or self-care (01) ==
LOC: GI LAB 09:01
PROVIDERS: ATTEND Internal Medicine Gastroenterology
DX: K22.10 Ulcer of esophagus without bleeding (principal); I85.00 Esophageal varices without bleeding; K76.6 Portal hypertension; K31.89 Other diseases of stomach and duodenum; I50.9 Heart failure, unspecified; J44.9 Chronic obstructive pulmonary disease, unspecified; Z87.891 Personal history of nicotine dependence; Z79.899 Other long term (current) drug therapy
CPT/HCPCS: 43235; G0500; J2250; J3010; J7040; 99152; A4620

== ENCOUNTER 2021-07-11 08:34 | Day surgery (SDC) | payer MEDICARE, MEDICAID ==
[~2021-07-11] VITALS: Ht 193 cm; Wt 134.0 kg
[~2021-07-11 08:34] MED LIST changes: +EZET10TA6 PO; +PANT-47 PO; +POTA-197 PO; -POTA20TA10 PO; +VITAMIN D PO
[2021-07-11] MEDS ORDERED: fentaNYL/PF 50MCG/1 ML 2ML syringe ONE (08:40)
[2021-07-11] MEDS ORDERED: LIDOcaine Viscous 15ml cup ONE (08:40)
[2021-07-11] MEDS ORDERED: MIDAZolam 1 MG/ML 5ML VIAL ONE (08:40)
[2021-07-11 09:14] VITALS: BP 151/67
[2021-07-11 10:08] VITALS: BP 130/65
[2021-07-11 10:18] VITALS: BP 129/69
[2021-07-11 10:28] VITALS: BP 114/54
== END 2021-07-11 10:37 | disposition home or self-care (01) ==
LOC: GI LAB 08:34
PROVIDERS: ATTEND Internal Medicine Gastroenterology
DX: I85.00 Esophageal varices without bleeding (principal); K29.60 Other gastritis without bleeding; J44.9 Chronic obstructive pulmonary disease, unspecified; Z87.891 Personal history of nicotine dependence; Z88.5 Allergy status to narcotic agent; Z86.19 Personal history of other infectious and parasitic diseases; Z79.899 Other long term (current) drug therapy
CPT/HCPCS: 43239; 88305; 88342; G0500; J2250; J3010; J7030; Z7512; 99152

== ENCOUNTER 2024-02-08 09:21 | Outpatient (CLI) | payer MEDICARE, MEDICAID ==
[~2024-02-08 09:21] MED LIST changes: +CHOL10008 PO; -FURO-150 PO; +FURO20TA4 PO; -MULT-1180 PO; -PANT-47 PO; +POTA-366 PO; -VITAMIN D PO
[2024-02-08 10:00] LABS: BASOPHILS % (AUTO) 0.2 % (0-1); EOSINOPHILS # (AUTO) 0.2 X10'3 (0-0.9); EOSINOPHILS % (AUTO) 3.1 % (0-6); HEMATOCRIT 41.5 % (42.0-52.0); HEMOGLOBIN 14.6 g/dl (14.0-17.9); LYMPHOCYTES # (AUTO) 1.3 X10'3 (1.1-4.8); LYMPHOCYTES % (AUTO) 20.1 % (21-51); MEAN CORPUSCULAR HEMOGLOBIN 32.5 PG (27.0-31.0); MEAN CORPUSCULAR HGB CONC 35.2 g/dL (33.0-36.5); MEAN CORPUSCULAR VOLUME 92.3 FL (78-98); MEAN PLATELET VOLUME 7.9 FL (7.4-10.4); MONOCYTES # (AUTO) 0.8 X10'3 (0-0.9); NEUTROPHILS # (AUTO) 4.1 X10'3 (1.8-7.7); NEUTROPHILS % (AUTO) 64.6 % (42-75); PLATELET COUNT 120 X10'3 (140-440); RED CELL DISTRIBUTION WIDTH 14.9 % (11.5-14.5); WHITE BLOOD COUNT 6.4 X10'3 (4.5-11.0)
[2024-02-08 10:15] LABS: APTT 27 SECONDS (22-32); INR 1.2 INR; PROTHROMBIN TIME 12.5 SECONDS (9.0-12.0)
[2024-02-08 10:18] LABS: ALBUMIN 3.7 G/DL (3.4-5.0); ANION GAP 5 (8-16); BLOOD UREA NITROGEN 27 MG/DL (7-18); BUN/CREATININE RATIO 17.6 (10.0-20.0); CALCIUM 9.8 MG/DL (8.5-10.1); CHLORIDE 95 MMOL/L (99-107); CHOL/HDL RATIO 3.1 (0.00-4.99); CHOLESTEROL 165 MG/DL (0-200); CREATININE 1.53 MG/DL (0.60-1.10); GLUCOSE 117 MG/DL (70-104); HDL CHOLESTEROL 53 MG/DL (35-60); LDL CHOLESTEROL 100 MG/DL (50-100); POTASSIUM 3.5 MMOL/L (3.5-5.1); SODIUM 137 MMOL/L (135-145); TOTAL CARBON DIOXIDE 36.6 MMOL/L (24-32); TRIGLYCERIDES 67 MG/DL (20-135); eGFR 45 ML/MIN
[2024-02-09] MEDS ORDERED: PANT-47 PO (22:39)
[2024-02-09] MEDS ORDERED: ESCI-8 PO (22:39)
[2024-02-12] MEDS ORDERED: sevoflurane 250ml liquid IH ONE (11:22)
[2024-02-12] MEDS ORDERED: midazolam 1 mg/ML 2ml injection ONE (11:23)
[2024-02-12] MEDS ORDERED: rocuronium 10mg/ml inj IV ONE (11:23)
[2024-02-12] MEDS ORDERED: fentaNYL /PF 50mcg/ml 5ml ampule ONE (11:23)
[2024-02-12] MEDS ORDERED: propofol inj 20 ML IV ONE (11:23)
[2024-02-12] MEDS ORDERED: ceFAZolin 1000mg inj ONE ×3 (11:39)
[2024-02-12] MEDS ORDERED: glycopyrrolate 0.2mg/ml inj ONE (12:54)
[2024-02-12] MEDS ORDERED: neostigmine methylsulfate 1 MG/ML 10ml vial ONE (12:54)
== END 2024-02-08 23:59 | disposition home or self-care (01) ==
LOC: LAB 09:21 → EDSTATUS 02-12 20:00
PROVIDERS: ATTEND Internal Medicine Interventional Cardiology
DX: Z53.8 Procedure and treatment not carried out for other reasons (principal)
CPT/HCPCS: 36415; 80048; 80061; 85025; 85610; 85730; J0690; J2250; J2704; J2710; J3010; J3490

== ENCOUNTER 2024-02-09 18:39 | Inpatient (IN) | payer MEDICARE, MEDICAID ==
[~2024-02-09] VITALS: Ht 193 cm; Wt 109.1 kg
[2024-02-09] MEDS: HYDROmorphone 1 mg/ml syringe IV ONE (20:10)
[2024-02-09 20:11] LABS: BASOPHILS % (AUTO) 0.4 % (0-1); EOSINOPHILS # (AUTO) 0.2 X10'3 (0-0.9); EOSINOPHILS % (AUTO) 2.5 % (0-6); HEMATOCRIT 41.1 % (42.0-52.0); HEMOGLOBIN 14.1 g/dl (14.0-17.9); LYMPHOCYTES # (AUTO) 0.9 X10'3 (1.1-4.8); LYMPHOCYTES % (AUTO) 13.1 % (21-51); MEAN CORPUSCULAR HEMOGLOBIN 31.7 PG (27.0-31.0); MEAN CORPUSCULAR HGB CONC 34.4 g/dL (33.0-36.5); MEAN CORPUSCULAR VOLUME 92.2 FL (78-98); MEAN PLATELET VOLUME 8.6 FL (7.4-10.4); MONOCYTES # (AUTO) 0.7 X10'3 (0-0.9); MONOCYTES % (AUTO) 10.8 % (2-12); NEUTROPHILS % (AUTO) 73.2 % (42-75); PLATELET COUNT 129 X10'3 (140-440); RED BLOOD COUNT 4.45 X10'6 (4.70-6.10); RED CELL DISTRIBUTION WIDTH 14.9 % (11.5-14.5); WHITE BLOOD COUNT 6.9 X10'3 (4.5-11.0)
[2024-02-09 20:26] LABS: APTT 24 SECONDS (22-32); INR 1.2 INR; PROTHROMBIN TIME 12.4 SECONDS (9.0-12.0)
[2024-02-09 20:38] LABS: BILIRUBIN,URINE NEGATIVE (Neg); CLARITY,URINE CLEAR (Clear); COLOR,URINE YELLOW (Yellow); GLUCOSE, URINE NEGATIVE (Neg); KETONES,URINE NEGATIVE (Neg); LEUKOCYTE ESTERASE ,URINE TRACE (Neg); NITRITES, URINE NEGATIVE (Neg); OCCULT BLOOD,URINE SMALL (Neg); PH,URINE 6.5 (4.8-8.0); PROTEIN,URINE NEGATIVE (Neg)
[2024-02-09 20:40] LABS: UA COLLECTION TYPE CLN CATCH MIDSTREAM
[2024-02-09 20:41] LABS: ALANINE AMINOTRANSFERASE 30 U/L (12-78); ALBUMIN 3.5 G/DL (3.4-5.0); ALBUMIN/GLOBULIN RATIO 0.9 (1.1-1.5); ALKALINE PHOSPHATASE 221 IU/L (46-116); ANION GAP 5 (8-16); ASPARTATE AMINO TRANSFERASE 53 U/L (10-37); BILIRUBIN,TOTAL 2.4 MG/DL (0.1-1.0); BLOOD UREA NITROGEN 29 MG/DL (7-18); BUN/CREATININE RATIO 17.4 (10.0-20.0); CALCIUM 9.6 MG/DL (8.5-10.1); CHLORIDE 93 MMOL/L (99-107); CREATININE 1.67 MG/DL (0.60-1.10); GLUCOSE 130 MG/DL (70-104); POTASSIUM 3.3 MMOL/L (3.5-5.1); SODIUM 134 MMOL/L (135-145); TOTAL CARBON DIOXIDE 36.1 MMOL/L (24-32); TOTAL PROTEIN 7.6 G/DL (6.4-8.2); eCRCL 51 ML/MIN; eGFR 41 ML/MIN
[2024-02-09 20:46] LABS: SQUAMOUS EPITHELIAL CELL,UR MODERATE /LPF (FEW)
[2024-02-09 20:48] LABS: PRO BRAIN NATRIURETIC PEPTIDE 147 PG/ML (0-125)
[2024-02-09 20:52] LABS: BACTERIA,URINE 2+ /HPF (Neg); HYALINE CASTS 0-3 /LPF (NEGATIVE); RBC,URINE 0-2 /HPF (0-2); WBC,URINE 0-4 /HPF (0-4)
[2024-02-09] MEDS ORDERED: PANT-47 PO (22:39)
[2024-02-09] MEDS ORDERED: ESCI-8 PO (22:39)
[2024-02-09] MEDS: D5-1/2NS w/20 mEq potassium per 1000ml IV ONE (22:45)
[2024-02-09] MEDS ORDERED: HYDROmorphone/PF 0.2 MG/ML SYRINGE IV PRN (23:05)
[2024-02-09] MEDS ORDERED: magnesium hydroxide 30ml (MOM) UD suspension PO PRN (23:05)
[2024-02-09] MEDS ORDERED: mag hydrox/Alum hydrox/simeth 30ml oral suspension PO PRN (23:05)
[2024-02-09] MEDS ORDERED: magnesium sulf-water 4G/100mL 100 ML IV PRN (23:05)
[2024-02-09] MEDS ORDERED: magnesium Cl slow-release 64mg tablet PO PRN (23:05)
[2024-02-09] MEDS ORDERED: acetaminophen 325mg tablet PO PRN (23:05)
[2024-02-09] MEDS ORDERED: potassium Cl 20 mEq SR tablet PO PRN (23:05)
[2024-02-09] MEDS ORDERED: magnesium sulf-water 2g/50mL 50 ML IV PRN (23:05)
[2024-02-09] MEDS ORDERED: ondansetron/PF 4mg/2ml inj IV PRN (23:05)
[2024-02-09] MEDS ORDERED: morphine 2 MG/ML inj. syringe IV PRN ×2 (23:05)
[2024-02-09] MEDS: HYDROmorphone inj. 0.5 MG/0.5 ML DISP.SYRIN IV PRN (23:24)
[2024-02-10 01:30] VITALS: BP 132/74; PULSE 59; RESP 17; TEMP 97.7; O2SAT 93
[2024-02-10] MEDS: aspirin 81mg, enteric-coated 1 TAB TABLET.DR PO SCH (02:15)
[2024-02-10] MEDS ORDERED: HYDROcodone/acetaminophen 5mg/325mg tablet 1/2 TAB PO PRN (02:25)
[2024-02-10] MEDS: normal saline 1000ml 1,000 ML IV SCH (02:53)
[2024-02-10] MEDS: HYDROcodone/acetaminophen 5mg/325mg tablet PO PRN (02:53)
[2024-02-10] MEDS: potassium Cl 20 mEq SR tablet PO PRN (02:54)
[2024-02-10 06:00] VITALS: BP 108/40; PULSE 74; RESP 17; TEMP 97.3; O2SAT 96
[2024-02-10 06:33] LABS: SODIUM,URINE RANDOM < 15 MEQ/L
[2024-02-10 06:46] LABS: ALANINE AMINOTRANSFERASE 28 U/L (12-78); ALBUMIN/GLOBULIN RATIO 0.8 (1.1-1.5); ALKALINE PHOSPHATASE 189 IU/L (46-116); ANION GAP 4 (8-16); ASPARTATE AMINO TRANSFERASE 44 U/L (10-37); BILIRUBIN,TOTAL 3.4 MG/DL (0.1-1.0); BLOOD UREA NITROGEN 25 MG/DL (7-18); BUN/CREATININE RATIO 17.9 (10.0-20.0); CALCIUM 8.9 MG/DL (8.5-10.1); CHLORIDE 96 MMOL/L (99-107); GLUCOSE 97 MG/DL (70-104); MAGNESIUM 1.9 MG/DL (1.5-2.4); POTASSIUM 3.3 MMOL/L (3.5-5.1); SODIUM 136 MMOL/L (135-145); TOTAL CARBON DIOXIDE 35.8 MMOL/L (24-32); TOTAL PROTEIN 6.8 G/DL (6.4-8.2); eCRCL 60 ML/MIN; eGFR 50 ML/MIN
[2024-02-10 07:01] LABS: OSMOLALITY UA 450 MOSM/K (50-1400)
[2024-02-10 07:15] LABS: BASOPHILS % (AUTO) 0.3 % (0-1); EOSINOPHILS # (AUTO) 0.2 X10'3 (0-0.9); HEMATOCRIT 38.8 % (42.0-52.0); HEMOGLOBIN 13.2 g/dl (14.0-17.9); LYMPHOCYTES # (AUTO) 0.8 X10'3 (1.1-4.8); LYMPHOCYTES % (AUTO) 11.3 % (21-51); MEAN CORPUSCULAR HEMOGLOBIN 31.5 PG (27.0-31.0); MEAN CORPUSCULAR HGB CONC 34.1 g/dL (33.0-36.5); MEAN CORPUSCULAR VOLUME 92.4 FL (78-98); MEAN PLATELET VOLUME 8.7 FL (7.4-10.4); MONOCYTES # (AUTO) 0.7 X10'3 (0-0.9); MONOCYTES % (AUTO) 10.9 % (2-12); NEUTROPHILS % (AUTO) 74.5 % (42-75); PLATELET COUNT 92 X10'3 (140-440); WHITE BLOOD COUNT 6.7 X10'3 (4.5-11.0)
[2024-02-10] MEDS: spironolactone 25 MG tablet PO SCH ×2 (08:00→20:13)
[2024-02-10] MEDS: K and/or MAG REPLACEMENT MC SCH (08:00)
[2024-02-10] MEDS ORDERED: heparin, porcine 5000 units/ml vial SQ SCH (08:00)
[2024-02-10] MEDS: furosemide 20MG tablet PO SCH ×2 (08:10→20:14)
[2024-02-10] MEDS: potassium Cl 20 mEq SR tablet PO SCH ×2 (08:10→20:08)
[2024-02-10] MEDS: metolazone 2.5mg tablet PO SCH (08:11)
[2024-02-10] MEDS: docusate sod 100mg capsule PO SCH (08:11)
[2024-02-10] MEDS: pantoprazole 40mg Tablet.DR PO SCH (08:11)
[2024-02-10] MEDS: ESCITALOPRAM 10 mg tablet 10 MG TABLET PO SCH (08:11)
[2024-02-10 10:00] VITALS: BP 105/48; PULSE 75; RESP 17; TEMP 97.6; O2SAT 96
[2024-02-10] MEDS ORDERED: FLU VACC TS2024-25(6MOS UP)/PF 45 MCG/0.5 ML SYRINGE IMVAC ONE (10:00)
[2024-02-10] MEDS: CefTRIAXone/D5W-Rocephin 1gm 50 ML IV SCH (12:09)
[2024-02-10 18:00] VITALS: BP 114/42; PULSE 64; RESP 16; TEMP 98.3; O2SAT 93
[2024-02-10] MEDS: ezetimibe 10mg tablet PO SCH (20:09)
[2024-02-10 22:00] VITALS: BP 90/49; PULSE 58; RESP 16; TEMP 98.9; O2SAT 94
[2024-02-11 06:00] VITALS: BP 104/48; PULSE 59; RESP 18; TEMP 98.4; O2SAT 94
[2024-02-11 06:23] LABS: BASOPHILS % (AUTO) 0.6 % (0-1); EOSINOPHILS # (AUTO) 0.3 X10'3 (0-0.9); EOSINOPHILS % (AUTO) 6.7 % (0-6); HEMATOCRIT 36.3 % (42.0-52.0); HEMOGLOBIN 12.4 g/dl (14.0-17.9); LYMPHOCYTES # (AUTO) 0.8 X10'3 (1.1-4.8); LYMPHOCYTES % (AUTO) 15.6 % (21-51); MEAN CORPUSCULAR HEMOGLOBIN 31.4 PG (27.0-31.0); MEAN CORPUSCULAR HGB CONC 34.2 g/dL (33.0-36.5); MEAN CORPUSCULAR VOLUME 91.8 FL (78-98); MEAN PLATELET VOLUME 8.7 FL (7.4-10.4); MONOCYTES # (AUTO) 0.6 X10'3 (0-0.9); MONOCYTES % (AUTO) 12.1 % (2-12); NEUTROPHILS # (AUTO) 3.3 X10'3 (1.8-7.7); PLATELET COUNT 77 X10'3 (140-440); RED BLOOD COUNT 3.95 X10'6 (4.70-6.10); RED CELL DISTRIBUTION WIDTH 15.2 % (11.5-14.5)
[2024-02-11 06:24] LABS: ALANINE AMINOTRANSFERASE 24 U/L (12-78); ALBUMIN 2.8 G/DL (3.4-5.0); ALBUMIN/GLOBULIN RATIO 0.8 (1.1-1.5); ALKALINE PHOSPHATASE 173 IU/L (46-116); ANION GAP 4 (8-16); ASPARTATE AMINO TRANSFERASE 38 U/L (10-37); BLOOD UREA NITROGEN 27 MG/DL (7-18); BUN/CREATININE RATIO 20.1 (10.0-20.0); CALCIUM 8.7 MG/DL (8.5-10.1); CHLORIDE 95 MMOL/L (99-107); CREATININE 1.34 MG/DL (0.60-1.10); GLUCOSE 118 MG/DL (70-104); MAGNESIUM 1.8 MG/DL (1.5-2.4); SODIUM 135 MMOL/L (135-145); TOTAL PROTEIN 6.4 G/DL (6.4-8.2); eCRCL 63 ML/MIN; eGFR 53 ML/MIN
[2024-02-11 08:00] VITALS: RESP 16; O2SAT 96
[2024-02-11] MEDS: potassium Cl 40MEQ/1/2NS 520ml 520 ML IV PRN (08:57)
[2024-02-11 10:00] VITALS: BP 100/75; PULSE 62; RESP 16; TEMP 97.3; O2SAT 95
[2024-02-11 18:00] VITALS: BP 116/52; PULSE 55; RESP 16; TEMP 98.4; O2SAT 96
[2024-02-11 22:00] VITALS: BP 110/35; PULSE 70; RESP 16; TEMP 98.9; O2SAT 95
[2024-02-12] VITALS (10 sets, daily range): BP systolic 102–150; BP diastolic 40–74; PULSE 58–84; RESP 11–17; TEMP 97.5–98.7; O2SAT 92–98
[2024-02-12 06:18] LABS: BASOPHILS % (AUTO) 0.5 % (0-1); EOSINOPHILS # (AUTO) 0.3 X10'3 (0-0.9); HEMATOCRIT 34.6 % (42.0-52.0); LYMPHOCYTES # (AUTO) 0.7 X10'3 (1.1-4.8); MONOCYTES # (AUTO) 0.6 X10'3 (0-0.9)
[2024-02-12 06:21] LABS: EOSINOPHILS % (AUTO) 6.2 % (0-6); LYMPHOCYTES % (AUTO) 16.6 % (21-51); MEAN CORPUSCULAR HEMOGLOBIN 31.9 PG (27.0-31.0); MEAN CORPUSCULAR HGB CONC 34.7 g/dL (33.0-36.5); MEAN CORPUSCULAR VOLUME 91.9 FL (78-98); MEAN PLATELET VOLUME 8.4 FL (7.4-10.4); MONOCYTES % (AUTO) 14.6 % (2-12); NEUTROPHILS # (AUTO) 2.7 X10'3 (1.8-7.7); NEUTROPHILS % (AUTO) 62.1 % (42-75); PLATELET COUNT 70 X10'3 (140-440); RED BLOOD COUNT 3.77 X10'6 (4.70-6.10); RED CELL DISTRIBUTION WIDTH 15.1 % (11.5-14.5); WHITE BLOOD COUNT 4.4 X10'3 (4.5-11.0)
[2024-02-12 06:30] LABS: ALANINE AMINOTRANSFERASE 24 U/L (12-78); ALBUMIN 2.6 G/DL (3.4-5.0); ALBUMIN/GLOBULIN RATIO 0.7 (1.1-1.5); ALKALINE PHOSPHATASE 159 IU/L (46-116); ANION GAP 3 (8-16); ASPARTATE AMINO TRANSFERASE 32 U/L (10-37); BILIRUBIN,TOTAL 1.9 MG/DL (0.1-1.0); BLOOD UREA NITROGEN 20 MG/DL (7-18); BUN/CREATININE RATIO 17.7 (10.0-20.0); CALCIUM 8.7 MG/DL (8.5-10.1); CHLORIDE 99 MMOL/L (99-107); CREATININE 1.13 MG/DL (0.60-1.10); GLUCOSE 128 MG/DL (70-104); MAGNESIUM 1.8 MG/DL (1.5-2.4); POTASSIUM 3.6 MMOL/L (3.5-5.1); SODIUM 134 MMOL/L (135-145); TOTAL CARBON DIOXIDE 31.6 MMOL/L (24-32); TOTAL PROTEIN 6.1 G/DL (6.4-8.2); eCRCL 75 ML/MIN; eGFR 64 ML/MIN
[2024-02-12] MEDS: furosemide 20MG tablet PO SCH (07:07)
[2024-02-12] MEDS: tranexamic acid 100mg/ml inj. ONE (10:15)
[2024-02-12] MEDS: vancomycin 1,000mg inj ONE (10:15)
[2024-02-12] MEDS ORDERED: acetaminophen 1,000mg/100ml IV 100 ML IV ONE (11:10)
[2024-02-12] MEDS ORDERED: ondansetron/PF 4mg/2ml inj IV PRN (11:10)
[2024-02-12] MEDS ORDERED: HYDROmorphone/PF 0.2 MG/ML SYRINGE IV PRN ×2 (11:10)
[2024-02-12] MEDS ORDERED: meperidine/PF 25mg/ml syringe IV PRN ×2 (11:10)
[2024-02-12] MEDS: ringers solution, lacted 1,000 ML IV SCH (11:10)
[2024-02-12] MEDS: meperidine/PF 25mg/ml syringe IV PRN (13:45)
[2024-02-12] MEDS: ceFAZolin 2gm in dextrose, iso 50 ML IV SCH (16:15)
[2024-02-12] MEDS: enoxaparin 30mg/0.3ml syringe SUBCUT SCH (20:39)
[2024-02-13 02:00] VITALS: BP 113/55; PULSE 60; RESP 16; TEMP 97; O2SAT 97
[2024-02-13 02:54] VITALS: RESP 16
[2024-02-13 06:23] LABS: BASOPHILS % (AUTO) 0.1 % (0-1); EOSINOPHILS % (AUTO) 0.2 % (0-6); HEMATOCRIT 35.2 % (42.0-52.0); HEMOGLOBIN 12.3 g/dl (14.0-17.9); LYMPHOCYTES # (AUTO) 0.5 X10'3 (1.1-4.8); LYMPHOCYTES % (AUTO) 6.4 % (21-51); MEAN CORPUSCULAR HEMOGLOBIN 32.1 PG (27.0-31.0); MEAN CORPUSCULAR HGB CONC 34.9 g/dL (33.0-36.5); MEAN CORPUSCULAR VOLUME 92.2 FL (78-98); MONOCYTES # (AUTO) 0.8 X10'3 (0-0.9); MONOCYTES % (AUTO) 10.3 % (2-12); NEUTROPHILS # (AUTO) 6.6 X10'3 (1.8-7.7); PLATELET COUNT 81 X10'3 (140-440); RED BLOOD COUNT 3.82 X10'6 (4.70-6.10); RED CELL DISTRIBUTION WIDTH 15.2 % (11.5-14.5)
[2024-02-13 06:37] LABS: ALANINE AMINOTRANSFERASE 20 U/L (12-78); ALBUMIN 2.5 G/DL (3.4-5.0); ALBUMIN/GLOBULIN RATIO 0.7 (1.1-1.5); ALKALINE PHOSPHATASE 153 IU/L (46-116); ANION GAP 2 (8-16); ASPARTATE AMINO TRANSFERASE 41 U/L (10-37); BILIRUBIN,TOTAL 1.7 MG/DL (0.1-1.0); BLOOD UREA NITROGEN 19 MG/DL (7-18); BUN/CREATININE RATIO 16.8 (10.0-20.0); CALCIUM 8.9 MG/DL (8.5-10.1); CHLORIDE 100 MMOL/L (99-107); CREATININE 1.13 MG/DL (0.60-1.10); GLUCOSE 137 MG/DL (70-104); MAGNESIUM 1.8 MG/DL (1.5-2.4); POTASSIUM 4.1 MMOL/L (3.5-5.1); SODIUM 135 MMOL/L (135-145); TOTAL CARBON DIOXIDE 33.3 MMOL/L (24-32); TOTAL PROTEIN 6.2 G/DL (6.4-8.2); eCRCL 75 ML/MIN; eGFR 64 ML/MIN
[2024-02-13] MEDS: lactose-reduced food (Ensure High Protein) 237ml bottle PO SCH (12:30)
[2024-02-13] MEDS ORDERED: JUVEN Smoothie Arginine/Glut./Ca2+Bmb (Juven 19.3pkt) 240ml cup PO SCH (17:30)
== END 2024-02-13 15:26 | DRG 521 ==
LOC: ER 18:39 → ED HOLD 22:16 → ORTHO 4S 02-10 01:34
PROVIDERS: ADMIT Internal Medicine Critical Care Medicine; ATTEND Internal Medicine Critical Care Medicine
PROC: 0SRR0JA Replacement of Right Hip Joint, Femoral Surface with Synthetic Substitute, Uncemented, Open Approach (ICD-10-PCS; principal; 2024-02-12 11:22)
DX: S72.091A Other fracture of head and neck of right femur, initial encounter for closed fracture (principal); N17.0 Acute kidney failure with tubular necrosis; N39.0 Urinary tract infection, site not specified; I13.0 Hypertensive heart and chronic kidney disease with heart failure and stage 1 through stage 4 chronic kidney disease, or unspecified chronic kidney disease; I50.9 Heart failure, unspecified; E78.5 Hyperlipidemia, unspecified; G89.29 Other chronic pain; E11.22 Type 2 diabetes mellitus with diabetic chronic kidney disease; R74.01 Elevation of levels of liver transaminase levels; N18.30 Chronic kidney disease, stage 3 unspecified; I35.0 Nonrheumatic aortic (valve) stenosis; J44.9 Chronic obstructive pulmonary disease, unspecified; K74.60 Unspecified cirrhosis of liver; D69.6 Thrombocytopenia, unspecified; W18.39XA Other fall on same level, initial encounter; E87.6 Hypokalemia; F10.90 Alcohol use, unspecified, uncomplicated; Z88.5 Allergy status to narcotic agent; Z79.82 Long term (current) use of aspirin; Z79.899 Other long term (current) drug therapy; Z90.49 Acquired absence of other specified parts of digestive tract; Z87.891 Personal history of nicotine dependence; Z98.1 Arthrodesis status; Y93.89 Activity, other specified; Y92.89 Other specified places as the place of occurrence of the external cause; Y99.8 Other external cause status; W18.30XA Fall on same level, unspecified, initial encounter
CPT/HCPCS: 36415; 71045; 73501; 73502; 74176; 76700; 80048; 80053; 80061; 81001; 82570; 82948; 83605; 83735; 83880; 83935; 84145; 84300; 84484; 85025; 85610; 85730; 87040; 87077; 87081; 87088; 87186; 87207; 90686; 93005; 93308; 96374; 97110; 97161; 97530; 99285; A4314; A4618; A6253; A6258; A6446; A6449; A7000; C1776; G0378; J0690; J0696; J1171; J1650; J2175; J2250; J2704; J2710; J3010; J3370; J3480; J3490; J7030; J7120

== ENCOUNTER 2024-04-08 09:50 | Day surgery (SDC) | payer MEDICARE, MEDICAID ==
[2024-04-04 12:35] LABS: BASOPHILS % (AUTO) 0.6 % (0-1); EOSINOPHILS # (AUTO) 0.3 X10'3 (0-0.9); HEMATOCRIT 34.9 % (42.0-52.0); HEMOGLOBIN 11.6 g/dl (14.0-17.9); LYMPHOCYTES % (AUTO) 17.7 % (21-51); MEAN CORPUSCULAR HEMOGLOBIN 31.3 PG (27.0-31.0); MEAN CORPUSCULAR HGB CONC 33.3 g/dL (33.0-36.5); MEAN CORPUSCULAR VOLUME 94.1 FL (78-98); MEAN PLATELET VOLUME 8.2 FL (7.4-10.4); MONOCYTES # (AUTO) 0.7 X10'3 (0-0.9); MONOCYTES % (AUTO) 11.8 % (2-12); NEUTROPHILS # (AUTO) 3.7 X10'3 (1.8-7.7); NEUTROPHILS % (AUTO) 64.9 % (42-75); PLATELET COUNT 125 X10'3 (140-440); RED BLOOD COUNT 3.71 X10'6 (4.70-6.10); RED CELL DISTRIBUTION WIDTH 15.6 % (11.5-14.5); WHITE BLOOD COUNT 5.7 X10'3 (4.5-11.0)
[2024-04-04 12:47] LABS: APTT 26 SECONDS (22-32); INR 1.1 INR; PROTHROMBIN TIME 11.4 SECONDS (9.0-12.0)
[2024-04-04 12:49] LABS: ALBUMIN 2.7 G/DL (3.4-5.0); ANION GAP 5 (8-16); BLOOD UREA NITROGEN 18 MG/DL (7-18); BUN/CREATININE RATIO 20.7 (10.0-20.0); CALCIUM 9.3 MG/DL (8.5-10.1); CHLORIDE 104 MMOL/L (99-107); CHOL/HDL RATIO 2.9 (0.00-4.99); CHOLESTEROL 126 MG/DL (0-200); CREATININE 0.87 MG/DL (0.60-1.10); GLUCOSE 103 MG/DL (70-104); HDL CHOLESTEROL 44 MG/DL (35-60); LDL CHOLESTEROL 68 MG/DL (50-100); POTASSIUM 3.9 MMOL/L (3.5-5.1); SODIUM 138 MMOL/L (135-145); TOTAL CARBON DIOXIDE 29.5 MMOL/L (24-32); TRIGLYCERIDES 61 MG/DL (20-135); eGFR 87 ML/MIN
[~2024-04-08] VITALS: Ht 193 cm; Wt 110.0 kg
[2024-04-08] VITALS (10 sets, daily range): BP systolic 84–125; BP diastolic 52–80; PULSE 58–69; RESP 14–20; TEMP 98.3; O2SAT 97–100
[~2024-04-08 09:50] MED LIST changes: +ESCI-8 PO; +ESCI10TA PO; +FLO0.1T PO; -FURO20TA4 PO; +MIDO2.5T PO; +PANT-47 PO; -POTA-197 PO; -POTA-366 PO; -SPIR25TA5 PO; -ZAR2.5T PO
[2024-04-08] MEDS ORDERED: diphenhydrAMINE 25mg capsule PO PRN (10:05)
[2024-04-08] MEDS ORDERED: normal saline 1,000 ML IV SCH (10:05)
[2024-04-08] MEDS ORDERED: LORazepam 0.5 MG tablet PO PRN (10:05)
[2024-04-08] MEDS ORDERED: HYDR-3973 PO (10:28)
[2024-04-08] MEDS ORDERED: SENN-360 PO (10:28)
[2024-04-08] MEDS ORDERED: FLO0.1T PO (10:28)
[2024-04-08] MEDS ORDERED: MIDO2.5T3 PO (10:28)
[2024-04-08] MEDS ORDERED: POLY119P2 PO (10:28)
[2024-04-08] MEDS ORDERED: IBUP-2417 PO (10:28)
[2024-04-08] MEDS ORDERED: ACET-1008 PO (10:28)
[2024-04-08] MEDS ORDERED: POTA-208 PO (10:28)
[2024-04-08] MEDS ORDERED: ONDA-243 PO (10:28)
[2024-04-08] MEDS ORDERED: LIDOcaine 1% (10mg/ml) 2ml vial ONE (12:45)
[2024-04-08] MEDS ORDERED: heparin 1,000unit/ml 10ml vial 10 ML ONE (12:45)
[2024-04-08] MEDS ORDERED: midazolam 1 mg/ML 2ml injection ONE (12:45)
[2024-04-08] MEDS ORDERED: verapamil 2.5 mg/ml inj IV ONE (12:45)
[2024-04-08] MEDS ORDERED: iohexol 350MG/ML 100ml bottle IV ONE (12:45)
[2024-04-08] MEDS ORDERED: fentaNYL/PF 50MCG/1 ML 2ML syringe ONE (12:45)
[2024-04-08] MEDS ORDERED: nitroGLYCERIN 500mcg/5mL D5W 5 ML IV ONE (12:46)
[2024-04-08 13:28] LABS: ISTAT HGB ART 10.5 g/dl (14.0-17.9); ISTAT Hct ART 31 %PCV (42-52); ISTAT O2 SATURATION ARTERIAL 95 % (95-98); ISTAT SOURCE ART
[2024-04-08] MEDS ORDERED: HYDROcodone/acetaminophen 5mg/325mg tablet PO PRN (14:05)
[2024-04-08] MEDS ORDERED: HYDROcodone/acetaminophen 10/325mg tab PO PRN (14:05)
[2024-04-09 08:17] LABS: ISTAT HGB MIX 9.5 g/dl (14.0-17.9); ISTAT Hct MIX 28 %PCV (42-52); ISTAT O2 SATURATION MIX VENOUS 75 % (60-80); ISTAT SOURCE VEN
== END 2024-04-08 16:10 | disposition home or self-care (01) ==
LOC: SSTAY O 09:50
PROVIDERS: ATTEND Internal Medicine Interventional Cardiology
DX: I35.0 Nonrheumatic aortic (valve) stenosis (principal); I25.10 Atherosclerotic heart disease of native coronary artery without angina pectoris; I49.1 Atrial premature depolarization; I10 Essential (primary) hypertension; E78.00 Pure hypercholesterolemia, unspecified; J44.9 Chronic obstructive pulmonary disease, unspecified; I73.9 Peripheral vascular disease, unspecified; Z79.82 Long term (current) use of aspirin; Z79.891 Long term (current) use of opiate analgesic; Z79.899 Other long term (current) drug therapy; Z88.5 Allergy status to narcotic agent
CPT/HCPCS: 36415; 80048; 80061; 82803; 85014; 85025; 85610; 85730; 93005; 93456; 99152; A6258; J1644; J2003; J2250; J3010; J3490; J7030; Q9967; 76937; A6402; C1751; C1769; C1894

== ENCOUNTER 2024-05-02 10:29 | Outpatient (CLI) | payer MEDICARE, MEDICAID ==
[~2024-05-02 10:29] MED LIST changes: +ACET-1008 PO; -ESCI10TA PO; +HYDR-3973 PO; +IBUP-2417 PO; +IODIXANOL 320 MG/ML INFUS..BTL 100ML IV ONE; -MIDO2.5T PO; +MIDO2.5T3 PO; +ONDA-243 PO; +POLY119P2 PO; +POTA-208 PO; +SENN-360 PO
[2024-05-02 11:24] LABS: EOSINOPHILS # (AUTO) 0.1 X10'3 (0-0.9); EOSINOPHILS % (AUTO) 3.9 % (0-6); HEMATOCRIT 33.6 % (42.0-52.0); HEMOGLOBIN 11.2 g/dl (14.0-17.9); LYMPHOCYTES # (AUTO) 0.9 X10'3 (1.1-4.8); LYMPHOCYTES % (AUTO) 25.9 % (21-51); MEAN CORPUSCULAR HEMOGLOBIN 30.8 PG (27.0-31.0); MEAN CORPUSCULAR HGB CONC 33.2 g/dL (33.0-36.5); MEAN CORPUSCULAR VOLUME 92.8 FL (78-98); MEAN PLATELET VOLUME 7.7 FL (7.4-10.4); MONOCYTES # (AUTO) 0.4 X10'3 (0-0.9); MONOCYTES % (AUTO) 11.4 % (2-12); NEUTROPHILS # (AUTO) 1.9 X10'3 (1.8-7.7); NEUTROPHILS % (AUTO) 57.8 % (42-75); PLATELET COUNT 100 X10'3 (140-440); RED BLOOD COUNT 3.62 X10'6 (4.70-6.10); RED CELL DISTRIBUTION WIDTH 15.8 % (11.5-14.5); WHITE BLOOD COUNT 3.4 X10'3 (4.5-11.0)
[2024-05-02 11:33] LABS: APTT 28 SECONDS (22-32); INR 1.2 INR; PROTHROMBIN TIME 12.5 SECONDS (9.0-12.0)
[2024-05-02 12:58] LABS: ALANINE AMINOTRANSFERASE 23 U/L (12-78); ALBUMIN 2.8 G/DL (3.4-5.0); ALBUMIN/GLOBULIN RATIO 0.8 (1.1-1.5); ALKALINE PHOSPHATASE 135 IU/L (46-116); ANION GAP 7 (8-16); ASPARTATE AMINO TRANSFERASE 38 U/L (10-37); BILIRUBIN,TOTAL 1.1 MG/DL (0.1-1.0); BLOOD UREA NITROGEN 10 MG/DL (7-18); BUN/CREATININE RATIO 12.2 (10.0-20.0); CALCIUM 8.9 MG/DL (8.5-10.1); CHLORIDE 110 MMOL/L (99-107); CREATININE 0.82 MG/DL (0.60-1.10); GLUCOSE 102 MG/DL (70-104); POTASSIUM 3.8 MMOL/L (3.5-5.1); PRO BRAIN NATRIURETIC PEPTIDE 365 PG/ML (0-125); SODIUM 147 MMOL/L (135-145); TOTAL CARBON DIOXIDE 29.9 MMOL/L (24-32); TOTAL PROTEIN 6.4 G/DL (6.4-8.2); eGFR > 90 ML/MIN
== END 2024-05-02 23:59 | disposition home or self-care (01) ==
LOC: RAD 10:29
PROVIDERS: ATTEND Internal Medicine Cardiovascular Disease
DX: I35.0 Nonrheumatic aortic (valve) stenosis (principal); R06.02 Shortness of breath; I65.29 Occlusion and stenosis of unspecified carotid artery; M47.814 Spondylosis without myelopathy or radiculopathy, thoracic region; I86.4 Gastric varices; R18.8 Other ascites; J98.11 Atelectasis
CPT/HCPCS: 71046; 71275; 74174; 75572; 80053; 83880; 85025; 85610; 85730; Q9967

== ENCOUNTER 2024-06-02 07:30 | Inpatient (IN) | payer MEDICARE, MEDICAID ==
[~2024-06-02] VITALS: Ht 193 cm; Wt 98.3 kg
[~2024-06-02 07:30] MED LIST changes: -ACET-1008 PO; -HYDR-3973 PO; -IBUP-2417 PO; -IODIXANOL 320 MG/ML INFUS..BTL 100ML IV ONE; -MIDO2.5T3 PO; -ONDA-243 PO; -POLY119P2 PO; -SENN-360 PO
[2024-07-09 14:15] LABS: BILIRUBIN,URINE NEGATIVE (Neg); CLARITY,URINE CLEAR (Clear); COLOR,URINE YELLOW (Yellow); GLUCOSE, URINE NEGATIVE (Neg); KETONES,URINE NEGATIVE (Neg); LEUKOCYTE ESTERASE ,URINE NEGATIVE (Neg); NITRITES, URINE NEGATIVE (Neg); OCCULT BLOOD,URINE NEGATIVE (Neg); PH,URINE 5.5 (4.8-8.0); PROTEIN,URINE NEGATIVE (Neg); UROBILINOGEN,URINE 0.2 E.U/dL (0.2-1.0)
[2024-07-09 14:15] LABS: BASOPHILS % (AUTO) 0.8 % (0-1); EOSINOPHILS # (AUTO) 0.1 X10'3 (0-0.9); EOSINOPHILS % (AUTO) 3.3 % (0-6); LYMPHOCYTES # (AUTO) 1.1 X10'3 (1.1-4.8); LYMPHOCYTES % (AUTO) 24.1 % (21-51); MEAN CORPUSCULAR HEMOGLOBIN 30.4 PG (27.0-31.0); MEAN CORPUSCULAR HGB CONC 33.6 g/dL (33.0-36.5); MEAN CORPUSCULAR VOLUME 90.6 FL (78-98); MEAN PLATELET VOLUME 7.9 FL (7.4-10.4); MONOCYTES # (AUTO) 0.5 X10'3 (0-0.9); MONOCYTES % (AUTO) 12.4 % (2-12); NEUTROPHILS # (AUTO) 2.6 X10'3 (1.8-7.7); NEUTROPHILS % (AUTO) 59.4 % (42-75); PRE OP HEMATOCRIT 38.8 % (42.0-52.0); PRE OP PLATELET COUNT 139 X10'3 (140-440); PRE OP WHITE BLOOD COUNT 4.4 10'3 (4.8-10.8); RED BLOOD COUNT 4.29 X10'6 (4.70-6.10); RED CELL DISTRIBUTION WIDTH 16.9 % (11.5-14.5)
[2024-07-09 14:18] LABS: UA COLLECTION TYPE VOIDED
[2024-07-09 14:28] LABS: PRE OP INR 1.1 INR; PRE OP PROTIME 11.8 SECONDS (9.0-12.0)
[2024-07-09 14:49] LABS: ALBUMIN 3.6 G/DL (3.4-5.0); ALBUMIN/GLOBULIN RATIO 0.8 (1.1-1.5); ALKALINE PHOSPHATASE 127 IU/L (46-116); BLOOD UREA NITROGEN 29 MG/DL (7-18); BUN/CREATININE RATIO 28.2 (10.0-20.0); CALCIUM 9.7 MG/DL (8.5-10.1); CHLORIDE 102 MMOL/L (99-107); CREATININE 1.03 MG/DL (0.60-1.10); PRE OP ALT 23 U/L (30-65); PRE OP ANION GAP 6 (8-16); PRE OP AST 29 U/L (10-37); PRE OP BILIRUB, TOTAL 1.5 MG/DL (0.0-1.0); PRE OP GLUCOSE 91 MG/DL (70-104); PRE OP POTASSIUM 3.8 MMOL/L (3.4-5.1); PRE OP SODIUM 140 MMOL/L (135-145); PRO BRAIN NATRIURETIC PEPTIDE 105 PG/ML (0-125); TOTAL PROTEIN 8.3 G/DL (6.4-8.2); eGFR 71 ML/MIN
[2024-07-09] MEDS ORDERED: FURO-150 PO ×2 (17:29)
[2024-07-09] MEDS ORDERED: ZAR2.5T PO (17:29)
[2024-07-09] MEDS ORDERED: POTA-208 PO (17:29)
[2024-07-09] MEDS ORDERED: SPIR25TA5 PO (17:29)
[2024-07-16] MEDS ORDERED: MULT-1249 PO (11:24)
[2024-07-17] VITALS (22 sets, daily range): BP systolic 94–150; BP diastolic 45–72; PULSE 52–68; RESP 12–16; TEMP 97.7–98.6; O2SAT 68–100
[2024-07-17] MEDS ORDERED: ondansetron/PF 4mg/2ml inj IV PRN ×3 (05:30→08:45)
[2024-07-17] MEDS: famotidine 20mg tablet PO ONE (06:04)
[2024-07-17] MEDS: ringers solution, lacted 1,000 ML IV SCH ×2 (06:04→11:04)
[2024-07-17] MEDS: aspirin 325mg tablet PO ONE (06:04)
[2024-07-17] MEDS: VANCOMYCIN/H2O 1.5g/300mL PB 300 ML IV ONE (06:05)
[2024-07-17] MEDS: ceFAZolin 2gm in dextrose, iso 50 ML IV ONE (06:05)
[2024-07-17] MEDS ORDERED: protamine sulfate 10mg/ml inj. ONE (06:18)
[2024-07-17] MEDS ORDERED: iohexol 350MG/ML 100ml bottle IV ONE ×2 (06:41)
[2024-07-17] MEDS ORDERED: heparin 1,000 UNITS/NS 500ml 1,500 ML ONE (06:41)
[2024-07-17] MEDS ORDERED: heparin 1,000 UNITS/NS 500ml 0 ML ONE (06:41)
[2024-07-17] MEDS ORDERED: LIDOcaine 1% 30ml preserv. free vial ONE ×2 (06:41)
[2024-07-17] MEDS ORDERED: sevoflurane 250ml liquid IH ONE (07:08)
[2024-07-17] MEDS ORDERED: fentaNYL/PF 50MCG/1 ML 2ML syringe ONE (07:12)
[2024-07-17] MEDS ORDERED: midazolam 1 mg/ML 2ml injection ONE (07:13)
[2024-07-17] MEDS ORDERED: heparin 1,000unit/ml 10ml vial 10 ML ONE (07:27)
[2024-07-17] MEDS ORDERED: propofol inj 20 ML IV ONE (07:27)
[2024-07-17] MEDS ORDERED: potassium Cl 20 mEq SR tablet PO SCH ×2 (08:00→21:00)
[2024-07-17] MEDS ORDERED: proCHLORperazine 10 MG/2 ml inj IV PRN (08:35)
[2024-07-17] MEDS ORDERED: hydrALAZINE 20mg/ml inj. IV PRN (08:35)
[2024-07-17] MEDS ORDERED: docusate sod 100mg capsule PO PRN (08:35)
[2024-07-17] MEDS ORDERED: potassium Cl 20mEq/100mL bag 100 ML IV PRN (08:35)
[2024-07-17] MEDS ORDERED: pantoprazole 40mg Tablet.DR PO PRN (08:35)
[2024-07-17] MEDS ORDERED: magnesium sulf-water 4G/100mL 100 ML IV PRN (08:35)
[2024-07-17] MEDS ORDERED: diphenhydrAMINE 25mg capsule PO PRN (08:35)
[2024-07-17] MEDS ORDERED: ALPRAZolam 0.25mg tablet PO PRN (08:35)
[2024-07-17] MEDS ORDERED: labetalol 20mg/4ml (5mg/ml) syringe IV PRN (08:35)
[2024-07-17] MEDS ORDERED: potassium Cl 20 mEq SR tablet PO PRN (08:35)
[2024-07-17] MEDS ORDERED: potassium Cl 40MEQ/270ML bag 250 ML IV PRN (08:35)
[2024-07-17] MEDS ORDERED: potassium Cl 40MEQ/1/2NS 520ml 520 ML IV PRN (08:35)
[2024-07-17] MEDS ORDERED: magnesium sulf-water 2g/50mL 50 ML IV PRN (08:35)
[2024-07-17] MEDS ORDERED: potassium CL 10mEq/100ml bag 100 ML IV PRN (08:35)
[2024-07-17] MEDS: phenylephrine inj 50 MG in normal saline 250ml IV solN IV SCH (08:42)
[2024-07-17] MEDS: nitroPRUSSIDE (NIPRIDE) (200MCG/ML) 100ML Drip IV SCH (08:42)
[2024-07-17] MEDS ORDERED: meperidine/PF 25mg/ml syringe IV PRN ×3 (08:45)
[2024-07-17] MEDS ORDERED: HYDROmorphone/PF 0.2 MG/ML SYRINGE IV PRN ×2 (08:45)
[2024-07-17] MEDS: spironolactone 25 MG tablet PO SCH (11:02)
[2024-07-17] MEDS: fludrocortisone acetate 0.1mg tablet PO SCH (11:02)
[2024-07-17] MEDS: furosemide 20MG tablet PO SCH ×2 (11:02→22:53)
[2024-07-17] MEDS: aspirin 81mg, enteric-coated 1 TAB TABLET.DR PO SCH (11:02)
[2024-07-17] MEDS: metolazone 2.5mg tablet PO SCH (11:03)
[2024-07-17] MEDS: multivitamins, therapeutics tablet PO SCH (11:03)
[2024-07-17] MEDS: pantoprazole 40mg Tablet.DR PO SCH (11:03)
[2024-07-17] MEDS: ESCITALOPRAM 10 mg tablet 10 MG TABLET PO SCH (11:03)
[2024-07-17] MEDS: cholecalciferol (vitamin D3) 1,000 unit (25mcg) tablet PO SCH (11:03)
[2024-07-17] MEDS: ezetimibe 10mg tablet PO SCH (11:04)
[2024-07-17] MEDS: normal saline 1000ml 1,000 ML IV SCH (12:19)
[2024-07-17] MEDS: ceFAZolin 1GM/D5W- ADD-VANTAGE 50 ML IV SCH (16:19)
[2024-07-17] MEDS: sod chloride 0.9% 10ml flush syringe IV SCH (16:20)
[2024-07-17] MEDS: acetaminophen 325mg tablet PO PRN (17:41)
[2024-07-17] MEDS ORDERED: VANCOMYCIN 1GM 200ML H20 (PEG) 200 ML IV SCH (20:00)
[2024-07-17] MEDS: vancomycin/NS 1 GM ADD-VANTAGE 250 ML IV SCH (20:57)
[2024-07-18 02:00] VITALS: BP 121/42; PULSE 66; RESP 16; TEMP 97.6; O2SAT 98
[2024-07-18 06:00] VITALS: BP 120/61; PULSE 60; RESP 18; TEMP 97.4; O2SAT 99
[2024-07-18 06:10] LABS: BASOPHILS % (AUTO) 0.5 % (0-1); EOSINOPHILS # (AUTO) 0.1 X10'3 (0-0.9); EOSINOPHILS % (AUTO) 3.2 % (0-6); HEMATOCRIT 33.3 % (42.0-52.0); HEMOGLOBIN 11.3 g/dl (14.0-17.9); LYMPHOCYTES # (AUTO) 0.9 X10'3 (1.1-4.8); LYMPHOCYTES % (AUTO) 20.9 % (21-51); MEAN CORPUSCULAR HEMOGLOBIN 30.7 PG (27.0-31.0); MEAN CORPUSCULAR HGB CONC 33.8 g/dL (33.0-36.5); MEAN CORPUSCULAR VOLUME 90.7 FL (78-98); MEAN PLATELET VOLUME 8.6 FL (7.4-10.4); MONOCYTES # (AUTO) 0.5 X10'3 (0-0.9); MONOCYTES % (AUTO) 13.3 % (2-12); NEUTROPHILS # (AUTO) 2.5 X10'3 (1.8-7.7); NEUTROPHILS % (AUTO) 62.1 % (42-75); PLATELET COUNT 67 X10'3 (140-440); RED BLOOD COUNT 3.67 X10'6 (4.70-6.10); WHITE BLOOD COUNT 4.1 X10'3 (4.5-11.0)
[2024-07-18 06:40] LABS: ALANINE AMINOTRANSFERASE 23 U/L (12-78); ALBUMIN/GLOBULIN RATIO 0.8 (1.1-1.5); ALKALINE PHOSPHATASE 90 IU/L (46-116); ANION GAP 5 (8-16); ASPARTATE AMINO TRANSFERASE 39 U/L (10-37); BILIRUBIN,TOTAL 1.4 MG/DL (0.1-1.0); BLOOD UREA NITROGEN 32 MG/DL (7-18); BUN/CREATININE RATIO 26.9 (10.0-20.0); CALCIUM 9.1 MG/DL (8.5-10.1); CHLORIDE 103 MMOL/L (99-107); CREATININE 1.19 MG/DL (0.60-1.10); GLUCOSE 102 MG/DL (70-104); MAGNESIUM 1.6 MG/DL (1.5-2.4); POTASSIUM 3.3 MMOL/L (3.5-5.1); PRO BRAIN NATRIURETIC PEPTIDE 279 PG/ML (0-125); SODIUM 141 MMOL/L (135-145); TOTAL CARBON DIOXIDE 33.3 MMOL/L (24-32); TOTAL PROTEIN 6.7 G/DL (6.4-8.2); eCRCL 70 ML/MIN; eGFR 60 ML/MIN
[2024-07-18] MEDS: aspirin 81mg tab.chew PO SCH (07:58)
[2024-07-18 11:00] VITALS: BP 94/50; PULSE 64; RESP 14; TEMP 98.5; O2SAT 98
== END 2024-07-18 13:05 | DRG 267 ==
LOC: PAS IN 07-17 05:25 → PCU 3S 07-17 10:52
PROVIDERS: ADMIT Internal Medicine Cardiovascular Disease; ATTEND Internal Medicine Cardiovascular Disease
PROC: B41D1ZZ Fluoroscopy of Aorta and Bilateral Lower Extremity Arteries using Low Osmolar Contrast (ICD-10-PCS; 2024-07-17)
PROC: 03HY32Z Insertion of Monitoring Device into Upper Artery, Percutaneous Approach (ICD-10-PCS; 2024-07-17)
PROC: 02RF38Z Replacement of Aortic Valve with Zooplastic Tissue, Percutaneous Approach (ICD-10-PCS; principal; 2024-07-17 07:08)
DX: I35.0 Nonrheumatic aortic (valve) stenosis (principal); Z00.6 Encounter for examination for normal comparison and control in clinical research program; I50.32 Chronic diastolic (congestive) heart failure; I11.0 Hypertensive heart disease with heart failure; K74.60 Unspecified cirrhosis of liver; B19.20 Unspecified viral hepatitis C without hepatic coma
CPT/HCPCS: 33361; 36415; 71045; 71046; 76937; 80053; 81003; 82948; 83735; 83880; 85025; 85347; 85610; 85730; 86885; 86900; 86901; 86920; 87081; 93005; 93308; A4618; A6258; A6449; A6590; C1756; C1760; C1769; C1894; G0378; J0690; J1644; J2003; J2250; J2371; J2704; J2720; J3010; J3370; J3372; J3490; J7030; J7040; J7050; J7120; Q9967

== ENCOUNTER 2024-06-09 09:03 | Inpatient (IN) | payer MEDICARE, MEDICAID ==
[~2024-06-09] VITALS: Ht 193 cm; Wt 103.2 kg
[~2024-06-09 09:03] MED LIST changes: +ACET-1008 PO; +HYDR-3973 PO; +IBUP-2417 PO; +MIDO2.5T3 PO; +ONDA-243 PO; +POLY119P2 PO; +SENN-360 PO
[2024-06-09 11:22] LABS: BASOPHILS % (AUTO) 0.2 % (0-1); EOSINOPHILS % (AUTO) 0.3 % (0-6); HEMATOCRIT 39.8 % (42.0-52.0); HEMOGLOBIN 13.5 g/dl (14.0-17.9); LYMPHOCYTES # (AUTO) 1.2 X10'3 (1.1-4.8); LYMPHOCYTES % (AUTO) 14.3 % (21-51); MEAN CORPUSCULAR HEMOGLOBIN 29.8 PG (27.0-31.0); MEAN CORPUSCULAR HGB CONC 33.8 g/dL (33.0-36.5); MEAN PLATELET VOLUME 8.5 FL (7.4-10.4); MONOCYTES # (AUTO) 1.1 X10'3 (0-0.9); MONOCYTES % (AUTO) 13.3 % (2-12); NEUTROPHILS # (AUTO) 5.9 X10'3 (1.8-7.7); NEUTROPHILS % (AUTO) 71.9 % (42-75); PLATELET COUNT 111 X10'3 (140-440); RED BLOOD COUNT 4.52 X10'6 (4.70-6.10); RED CELL DISTRIBUTION WIDTH 15.3 % (11.5-14.5); WHITE BLOOD COUNT 8.1 X10'3 (4.5-11.0)
[2024-06-09 11:36] LABS: ANION GAP 5 (8-16); BLOOD UREA NITROGEN 26 MG/DL (7-18); BUN/CREATININE RATIO 26.8 (10.0-20.0); CALCIUM 10.3 MG/DL (8.5-10.1); CHLORIDE 98 MMOL/L (99-107); CREATINE KINASE 132 U/L (39-308); CREATININE 0.97 MG/DL (0.60-1.10); GLUCOSE 132 MG/DL (70-104); POTASSIUM 4.1 MMOL/L (3.5-5.1); SODIUM 138 MMOL/L (135-145); TOTAL CARBON DIOXIDE 35.3 MMOL/L (24-32); eCRCL 87 ML/MIN; eGFR 77 ML/MIN
[2024-06-09] MEDS: TETanus/Pertussis (Acell)/Diphther VAC/PF (Tdap-Adult) 0.5ml syringe IMVAC ONE (11:47)
[2024-06-09 12:12] LABS: BILIRUBIN,URINE NEGATIVE (Neg); CLARITY,URINE CLEAR (Clear); COLOR,URINE YELLOW (Yellow); GLUCOSE, URINE NEGATIVE (Neg); KETONES,URINE NEGATIVE (Neg); LEUKOCYTE ESTERASE ,URINE NEGATIVE (Neg); NITRITES, URINE NEGATIVE (Neg); OCCULT BLOOD,URINE NEGATIVE (Neg); PROTEIN,URINE NEGATIVE (Neg); UROBILINOGEN,URINE 0.2 E.U/dL (0.2-1.0)
[2024-06-09 12:16] LABS: UA COLLECTION TYPE URINAL
[2024-06-09] MEDS ORDERED: ondansetron/PF 4mg/2ml inj IV PRN (14:30)
[2024-06-09] MEDS ORDERED: magnesium hydroxide 30ml (MOM) UD suspension PO PRN (14:30)
[2024-06-09] MEDS ORDERED: magnesium sulf-water 4G/100mL 100 ML IV PRN (14:30)
[2024-06-09] MEDS ORDERED: mag hydrox/Alum hydrox/simeth 30ml oral suspension PO PRN (14:30)
[2024-06-09] MEDS ORDERED: magnesium Cl slow-release 64mg tablet PO PRN (14:30)
[2024-06-09] MEDS ORDERED: potassium Cl 40MEQ/1/2NS 520ml 520 ML IV PRN (14:30)
[2024-06-09] MEDS ORDERED: potassium Cl 20 mEq SR tablet PO PRN (14:30)
[2024-06-09] MEDS ORDERED: magnesium sulf-water 2g/50mL 50 ML IV PRN (14:30)
[2024-06-09 17:01] LABS: HEMOGLOBIN A1C 4.8 % (4.5-6.2)
[2024-06-09] MEDS: LORazepam 2 mg/ml vial IM ONE (18:28)
[2024-06-09] MEDS: aspirin 81mg, enteric-coated 1 TAB TABLET.DR PO SCH (18:28)
[2024-06-09] MEDS: normal saline 1000ml 1,000 ML IV SCH (19:42)
[2024-06-09] MEDS: K and/or MAG REPLACEMENT MC SCH (20:00)
[2024-06-09 20:10] VITALS: BP 132/60; PULSE 71; RESP 19; TEMP 98.2; O2SAT 95
[2024-06-09] MEDS: docusate sod 100mg capsule PO SCH (21:04)
[2024-06-09 22:00] VITALS: BP 119/60; PULSE 63; RESP 16; TEMP 97.2; O2SAT 96
[2024-06-09] MEDS: acetaminophen 325mg tablet PO PRN (22:09)
[2024-06-10] VITALS (9 sets, daily range): BP systolic 106–125; BP diastolic 50–65; PULSE 61–74; RESP 10–20; TEMP 97–98.2; O2SAT 95–100
[2024-06-10 06:41] LABS: BASOPHILS % (AUTO) 0.7 % (0-1); EOSINOPHILS # (AUTO) 0.2 X10'3 (0-0.9); EOSINOPHILS % (AUTO) 3.2 % (0-6); HEMATOCRIT 34.3 % (42.0-52.0); HEMOGLOBIN 11.8 g/dl (14.0-17.9); LYMPHOCYTES # (AUTO) 1.3 X10'3 (1.1-4.8); LYMPHOCYTES % (AUTO) 25.1 % (21-51); MEAN CORPUSCULAR HEMOGLOBIN 30.4 PG (27.0-31.0); MEAN CORPUSCULAR HGB CONC 34.4 g/dL (33.0-36.5); MEAN CORPUSCULAR VOLUME 88.3 FL (78-98); MEAN PLATELET VOLUME 8.7 FL (7.4-10.4); MONOCYTES # (AUTO) 0.8 X10'3 (0-0.9); MONOCYTES % (AUTO) 15.9 % (2-12); NEUTROPHILS # (AUTO) 2.9 X10'3 (1.8-7.7); NEUTROPHILS % (AUTO) 55.1 % (42-75); PLATELET COUNT 85 X10'3 (140-440); RED BLOOD COUNT 3.89 X10'6 (4.70-6.10); RED CELL DISTRIBUTION WIDTH 15.2 % (11.5-14.5); WHITE BLOOD COUNT 5.3 X10'3 (4.5-11.0)
[2024-06-10 07:02] LABS: ALBUMIN 3.3 G/DL (3.4-5.0); ANION GAP 6 (8-16); BLOOD UREA NITROGEN 23 MG/DL (7-18); BUN/CREATININE RATIO 26.7 (10.0-20.0); CHLORIDE 98 MMOL/L (99-107); CHOL/HDL RATIO 2.4 (0.00-4.99); CHOLESTEROL 139 MG/DL (0-200); CREATININE 0.86 MG/DL (0.60-1.10); GLUCOSE 106 MG/DL (70-104); HDL CHOLESTEROL 58 MG/DL (35-60); LDL CHOLESTEROL 74 MG/DL (50-100); MAGNESIUM 1.8 MG/DL (1.5-2.4); POTASSIUM 3.4 MMOL/L (3.5-5.1); SODIUM 137 MMOL/L (135-145); TOTAL CARBON DIOXIDE 33.1 MMOL/L (24-32); TRIGLYCERIDES 33 MG/DL (20-135); eCRCL 98 ML/MIN; eGFR 88 ML/MIN
[2024-06-10] MEDS: potassium Cl 20 mEq SR tablet PO PRN (07:39)
[2024-06-10] MEDS: ESCITALOPRAM 10 mg tablet 10 MG TABLET PO SCH (15:29)
[2024-06-10] MEDS: ezetimibe 10mg tablet PO SCH (20:30)
[2024-06-10] MEDS: HYDROcodone/acetaminophen 5mg/325mg tablet PO PRN (20:33)
[2024-06-11] VITALS (8 sets, daily range): BP systolic 91–130; BP diastolic 47–73; PULSE 31–96; RESP 10–20; TEMP 97.3–97.8; O2SAT 94–97
[2024-06-11 06:50] LABS: ALBUMIN 3.1 G/DL (3.4-5.0); ANION GAP 3 (8-16); BLOOD UREA NITROGEN 21 MG/DL (7-18); BUN/CREATININE RATIO 25.6 (10.0-20.0); CALCIUM 9.2 MG/DL (8.5-10.1); CHLORIDE 101 MMOL/L (99-107); CREATININE 0.82 MG/DL (0.60-1.10); GLUCOSE 107 MG/DL (70-104); MAGNESIUM 1.8 MG/DL (1.5-2.4); POTASSIUM 3.9 MMOL/L (3.5-5.1); SODIUM 134 MMOL/L (135-145); TOTAL CARBON DIOXIDE 30.5 MMOL/L (24-32); eCRCL 103 ML/MIN; eGFR > 90 ML/MIN
[2024-06-11 07:09] LABS: BASOPHILS % (AUTO) 0.7 % (0-1); EOSINOPHILS # (AUTO) 0.3 X10'3 (0-0.9); EOSINOPHILS % (AUTO) 7.1 % (0-6); HEMOGLOBIN 11.4 g/dl (14.0-17.9); LYMPHOCYTES # (AUTO) 0.9 X10'3 (1.1-4.8); LYMPHOCYTES % (AUTO) 23.9 % (21-51); MEAN CORPUSCULAR HEMOGLOBIN 29.9 PG (27.0-31.0); MEAN CORPUSCULAR HGB CONC 33.6 g/dL (33.0-36.5); MEAN PLATELET VOLUME 9.4 FL (7.4-10.4); MONOCYTES # (AUTO) 0.5 X10'3 (0-0.9); MONOCYTES % (AUTO) 14.3 % (2-12); PLATELET COUNT 84 X10'3 (140-440); RED BLOOD COUNT 3.82 X10'6 (4.70-6.10); RED CELL DISTRIBUTION WIDTH 15.2 % (11.5-14.5); WHITE BLOOD COUNT 3.7 X10'3 (4.5-11.0)
[2024-06-11] MEDS: morphine 2 MG/ML inj. syringe IV PRN (22:59)
[2024-06-11] MEDS: HYDROcodone/acetaminophen 10/325mg tab PO PRN (23:28)
[2024-06-12 02:00] VITALS: BP 111/56; PULSE 65; RESP 13; TEMP 97.8; O2SAT 98
[2024-06-12 06:00] VITALS: BP 110/55; PULSE 63; RESP 13; TEMP 97.3; O2SAT 97
[2024-06-12 06:45] LABS: BASOPHILS % (AUTO) 0.7 % (0-1); EOSINOPHILS # (AUTO) 0.2 X10'3 (0-0.9); EOSINOPHILS % (AUTO) 6.6 % (0-6); HEMATOCRIT 30.3 % (42.0-52.0); HEMOGLOBIN 10.4 g/dl (14.0-17.9); LYMPHOCYTES # (AUTO) 0.8 X10'3 (1.1-4.8); LYMPHOCYTES % (AUTO) 22.5 % (21-51); MEAN CORPUSCULAR HEMOGLOBIN 30.4 PG (27.0-31.0); MEAN CORPUSCULAR HGB CONC 34.3 g/dL (33.0-36.5); MEAN CORPUSCULAR VOLUME 88.5 FL (78-98); MEAN PLATELET VOLUME 8.6 FL (7.4-10.4); MONOCYTES # (AUTO) 0.4 X10'3 (0-0.9); MONOCYTES % (AUTO) 11.6 % (2-12); NEUTROPHILS % (AUTO) 58.6 % (42-75); PLATELET COUNT 80 X10'3 (140-440); RED BLOOD COUNT 3.42 X10'6 (4.70-6.10); WHITE BLOOD COUNT 3.4 X10'3 (4.5-11.0)
[2024-06-12 06:58] LABS: ALBUMIN 2.8 G/DL (3.4-5.0); ANION GAP 5 (8-16); BLOOD UREA NITROGEN 19 MG/DL (7-18); BUN/CREATININE RATIO 29.2 (10.0-20.0); CALCIUM 8.9 MG/DL (8.5-10.1); CHLORIDE 101 MMOL/L (99-107); CREATININE 0.65 MG/DL (0.60-1.10); GLUCOSE 102 MG/DL (70-104); MAGNESIUM 1.7 MG/DL (1.5-2.4); POTASSIUM 3.3 MMOL/L (3.5-5.1); SODIUM 134 MMOL/L (135-145); TOTAL CARBON DIOXIDE 27.9 MMOL/L (24-32); eCRCL 130 ML/MIN; eGFR > 90 ML/MIN
[2024-06-12 08:00] VITALS: BP_SYST 110; BP_SYST 119; BP_SYST 126; BP_DIAS 55; BP_DIAS 60; BP_DIAS 68; PULSE 69; PULSE 70; PULSE 72
[2024-06-12 08:03] VITALS: RESP 13; O2SAT 97
[2024-06-12 11:00] VITALS: BP 103/54; PULSE 60; RESP 14; TEMP 97.4; O2SAT 97
== END 2024-06-12 13:55 | DRG 307 ==
LOC: ER 09:04 → ED HOLD 12:24 → PCU 3S 19:55
PROVIDERS: ADMIT Family Medicine; ATTEND Family Medicine
DX: I35.2 Nonrheumatic aortic (valve) stenosis with insufficiency (principal); E87.20 Acidosis, unspecified; I13.0 Hypertensive heart and chronic kidney disease with heart failure and stage 1 through stage 4 chronic kidney disease, or unspecified chronic kidney disease; S42.031A Displaced fracture of lateral end of right clavicle, initial encounter for closed fracture; I50.9 Heart failure, unspecified; J44.9 Chronic obstructive pulmonary disease, unspecified; N18.2 Chronic kidney disease, stage 2 (mild); B18.2 Chronic viral hepatitis C; K74.60 Unspecified cirrhosis of liver; D69.6 Thrombocytopenia, unspecified; G89.29 Other chronic pain; W18.39XA Other fall on same level, initial encounter; Z87.11 Personal history of peptic ulcer disease; Y93.89 Activity, other specified; Y92.89 Other specified places as the place of occurrence of the external cause; Y99.8 Other external cause status
CPT/HCPCS: 36415; 70450; 70551; 71045; 72070; 73010; 73030; 80048; 80061; 81003; 82550; 83036; 83605; 83735; 84484; 85025; 87040; 87081; 90715; 93005; 97161; 97530; 99285; A4565; A6258; A6590; G0378; J2060; J2270; J7030